=== PATIENT | male | born 1965 | race Caucasian/White ===

== ENCOUNTER 2022-12-22 17:14 | Observation (INO) | payer OTHER, SELFPAY ==
[~2022-12-22 17:14] MED LIST: Iopamidol 370 76% 100 ML VIAL ONE
[2022-12-22 18:24] LABS: #Basophils 0.1 10x3/uL (0.0-0.2); #Eosinphils 0.2 10x3/uL (0.0-0.5); #Monocytes 0.6 10x3/uL (0.0-1.1); #Neutrophils 3.9 10x3/uL (1.5-8.4); %Basophils 0.8 % (0.0-2.0); %Eosinophils 2.6 % (0.0-6.0); %Lymphocytes 23.3 % (18.0-47.0); %Monocytes 9.7 % (0.0-10.0); %Neutrophils 63.4 % (40.0-75.0); Hemoglobin 13.6 g/dL (13.5-17.5); Mean Corpuscular HGB CONC 34.6 g/dL (32.0-36.0); Mean Corpuscular Volume 106.8 fl (81.2-95.1); Mean Platelet Volume 10.3 fl (7.4-10.4); Platelet Count 128 10x3/uL (150-450); RBC Distribution Width 13.1 % (11.5-14.5); Red Blood Cell (RBC) Count 3.68 10x6/uL (4.32-5.72); White Blood Cell (WBC) Count 6.2 10x3/uL (3.5-10.5)
[2022-12-22 18:29] LABS: Albumin 3.7 g/dL (3.5-5.0); Anion Gap 14 mmol/L (10-20); BUN (Urea Nitrogen) 15 mg/dL (8.4-25.7); Bilirubin, Total 3.9 mg/dL (0.2-1.2); Calc. Creatinine Clearance 0 mL/min (70-130); Calcium 9.2 mg/dL (7.8-10.44); Carbon Dioxide 26 mmol/L (22-29); Chloride 104 mmol/L (98-107); Estimated GFR 102; Glucose 139 mg/dL (70-105); Potassium 3.6 mmol/L (3.5-5.1); Protein, Total 6.9 g/dL (6.0-8.3); Sodium 140 mmol/L (136-145)
[2022-12-22 18:30] LABS: ALT (SGPT) 46 U/L (8-55); AST (SGOT) 57 U/L (5-34); Alkaline Phosphatase 154 U/L (40-110); Globulin 3.2 g/dL (2.4-3.5); Lipase 70 U/L (8-78)
[2022-12-22 19:27] LABS: Macrocytosis SLIGHT = 6-15 cells (100X) (0-5/hpf)
[2022-12-22 19:29] LABS: Platelet Morphology Comment Appears Decreased
[2022-12-22] MEDS ORDERED: Morphine 4 MG/ML VIAL ONE ×2 (20:34→22:21)
[2022-12-22] MEDS ORDERED: Ondansetron PF 4 MG/2 ML Vial ONE ×2 (20:40→22:21)
[2022-12-23] MEDS ORDERED: Nitroglycerin 0.4 MG TAB (25 Tab Bottle) SL PRN (00:01)
[2022-12-23] MEDS ORDERED: metFORMIN 500 MG TAB PO SCH ×2 (00:15→21:00)
[2022-12-23] MEDS ORDERED: Atorvastatin Calcium 10 MG TAB PO SCH ×2 (00:15→21:00)
[2022-12-23] MEDS ORDERED: Morphine 4 MG/ML VIAL SLOW IVP PRN (00:16)
[2022-12-23] MEDS ORDERED: Morphine 2 MG/ML VIAL SLOW IVP PRN (00:16)
[2022-12-23] MEDS ORDERED: metFORMIN 500 MG TAB ONE (01:22)
[2022-12-23] MEDS ORDERED: Atorvastatin Calcium 10 MG TAB ONE (01:23)
[2022-12-23 01:41] VITALS: BMI 33.1
[2022-12-23] MEDS ORDERED: Morphine 4 MG/ML VIAL ONE (02:09)
[2022-12-23 02:14] LABS: SARS-CoV-2 NAA Rapid Test Not Detected (NotDetected)
[2022-12-23] MEDS ORDERED: Thiamine HCl 200 MG/2 ML VIAL SLOW IVP SCH (03:15)
[2022-12-23 03:55] LABS: #Eosinphils 0.1 10x3/uL (0.0-0.5); #Monocytes 0.8 10x3/uL (0.0-1.1); #Neutrophils 6.2 10x3/uL (1.5-8.4); %Basophils 0.4 % (0.0-2.0); %Eosinophils 1.2 % (0.0-6.0); %Lymphocytes 12.9 % (18.0-47.0); %Monocytes 9.9 % (0.0-10.0); %Neutrophils 75.5 % (40.0-75.0); Hemoglobin 12.7 g/dL (13.5-17.5); Mean Corpuscular HGB CONC 34.3 g/dL (32.0-36.0); Mean Corpuscular Hemoglobin 36.2 pg (27.0-33.0); Mean Corpuscular Volume 105.4 fl (81.2-95.1); Mean Platelet Volume 10.2 fl (7.4-10.4); Platelet Count 109 10x3/uL (150-450); RBC Distribution Width 13.1 % (11.5-14.5); Red Blood Cell (RBC) Count 3.51 10x6/uL (4.32-5.72); White Blood Cell (WBC) Count 8.2 10x3/uL (3.5-10.5)
[2022-12-23 04:00] LABS: Anion Gap 13 mmol/L (10-20); BUN (Urea Nitrogen) 14 mg/dL (8.4-25.7); Calc. Creatinine Clearance 175 mL/min (70-130); Calcium 8.6 mg/dL (7.8-10.44); Carbon Dioxide 26 mmol/L (22-29); Chloride 104 mmol/L (98-107); Cholesterol 81 mg/dl (< 200 Desired); Estimated GFR 108; Glucose 122 mg/dL (70-105); HDL Cholesterol 41 mg/dL (>60 Neg Risk); LDL Cholesterol, Calculated 20 mg/dL; Magnesium 1.4 mg/dL (1.6-2.6); Potassium 3.9 mmol/L (3.5-5.1); Sodium 139 mmol/L (136-145); Triglycerides 102 mg/dL (Less than 150)
[2022-12-23] MEDS ORDERED: Thiamine HCl 200 MG/2 ML VIAL ONE (05:09)
[2022-12-23 06:00] VITALS: TEMP 97.8
[2022-12-23] MEDS ORDERED: Electrolyte Replacement Protocol 1 EACH FS SCH (07:30)
[2022-12-23] MEDS ORDERED: Magnesium 2 GM/50 ML(in water) 2 GM in Premix Bag 1 BAG IVPB SCH (08:00)
[2022-12-23] MEDS ORDERED: Aspirin Chewable 81 MG TAB ONE ×2 (08:57→09:25)
[2022-12-23] MEDS ORDERED: Thiamine 100 MG TAB ONE (08:57)
[2022-12-23] MEDS ORDERED: Ondansetron PF 4 MG/2 ML Vial ONE (08:58)
[2022-12-23] MEDS ORDERED: Lisinopril 10 MG TAB ONE (08:58)
[2022-12-23] MEDS ORDERED: Multivitamin W/ Minerals 1 TAB ONE (08:58)
[2022-12-23] MEDS ORDERED: Folic Acid 1 MG TAB ONE (08:59)
[2022-12-23] MEDS ORDERED: Lisinopril 10 MG TAB PO SCH (09:00)
[2022-12-23] MEDS ORDERED: Allopurinol 300 MG TAB PO SCH (09:00)
[2022-12-23] MEDS ORDERED: Morphine 2 MG/ML VIAL ONE ×2 (09:00→19:06)
[2022-12-23] MEDS ORDERED: Folic Acid 1 MG TAB PO SCH (09:00)
[2022-12-23] MEDS ORDERED: Thiamine 100 MG TAB PO SCH (09:00)
[2022-12-23] MEDS ORDERED: Multivitamin W/ Minerals 1 TAB PO SCH (09:00)
[2022-12-23] MEDS ORDERED: Aspirin Chewable 81 MG TAB PO SCH (09:00)
[2022-12-23 09:23] VITALS: BP 149/82
[2022-12-23] MEDS ORDERED: Magnesium 2 GM/50 ML BAG (IN WATER) ONE (09:32)
[2022-12-23 14:34] LABS: Bilirubin Neg (Negative); Blood, Urine Negative (Negative); Clarity Clear (Clear); Glucose, Urine (Dipstick) Normal (Negative); Ketone, Urine Negative (Negative); Leukocyte Negative (Negative); Nitrite Negative (Negative); Protein, Urine (Dipstick) 15 mg/dl (Neg-Trace)
[2022-12-23 14:52] LABS: Bacteria/HPF Rare-Few HPF (None Seen); Oval Fat Bodies/HPF 1+ HPF (None Seen); RBC/HPF 0-3 HPF (0-3); Squamous Epithelial 0-3 HPF (0-3)
[2022-12-23 14:53] LABS: Mucous/LPF 2+ LPF (<2+)
[2022-12-23] MEDS ORDERED: Nitroglycerin 0.4 MG TAB 1 EACH ONE (15:54)
[2022-12-23] MEDS ORDERED: Acetaminophen 325 MG TAB PO PRN (17:51)
[2022-12-23] MEDS ORDERED: Acetaminophen 325 MG TAB ONE (19:06)
[2022-12-23] MEDS ORDERED: Atorvastatin Calcium 40 MG TAB PO SCH (21:00)
[2022-12-23] MEDS ORDERED: Gabapentin 300 MG CAP PO SCH (21:00)
[2022-12-24] MEDS ORDERED: Ezetimibe 10 MG TAB PO SCH (09:00)
[2022-12-24] MEDS ORDERED: Allopurinol 300 MG TAB PO SCH (09:00)
== END 2022-12-23 20:01 | disposition home or self-care (01) ==
LOC: CSHERS 17:14 → CSHERHOLD 21:23
PROVIDERS: ADMIT Emergency Medicine; ATTEND Nurse Practitioner Family
DX: R07.2 Precordial pain (principal); R10.13 Epigastric pain; I11.9 Hypertensive heart disease without heart failure; E78.5 Hyperlipidemia, unspecified; E11.9 Type 2 diabetes mellitus without complications; I25.10 Atherosclerotic heart disease of native coronary artery without angina pectoris; K21.9 Gastro-esophageal reflux disease without esophagitis; M10.9 Gout, unspecified; Z20.822 Contact with and (suspected) exposure to COVID-19; Z79.82 Long term (current) use of aspirin; Z79.84 Long term (current) use of oral hypoglycemic drugs; Z79.899 Other long term (current) drug therapy; Z88.8 Allergy status to other drugs, medicaments and biological substances; Z87.891 Personal history of nicotine dependence; Z98.890 Other specified postprocedural states
CPT/HCPCS: 36415; 36416; 71045; 71275; 76705; 80048; 80053; 80061; 81001; 82607; 83690; 83735; 83880; 84484; 85025; 85379; 93005; 93010; 96361; 96374; 96375; 96376; G0378; J1650; J2270; J2272; J2405; J3411; J3475; Q9967; U0002

== ENCOUNTER 2022-12-27 15:33 | Inpatient (IN) | payer OTHER, SELFPAY ==
[2022-12-27 16:32] LABS: #Neutrophils 5.5 10x3/uL (1.5-8.4); %Basophils 0.4 % (0.0-2.0); %Eosinophils 0.1 % (0.0-6.0); %Lymphocytes 11.9 % (18.0-47.0); %Monocytes 13.4 % (0.0-10.0); %Neutrophils 73.8 % (40.0-75.0); Hemoglobin 13.1 g/dL (13.5-17.5); Mean Corpuscular HGB CONC 35.1 g/dL (32.0-36.0); Mean Corpuscular Hemoglobin 36.3 pg (27.0-33.0); Mean Corpuscular Volume 103.3 fl (81.2-95.1); Platelet Count 134 10x3/uL (150-450); RBC Distribution Width 13.3 % (11.5-14.5); Red Blood Cell (RBC) Count 3.61 10x6/uL (4.32-5.72); White Blood Cell (WBC) Count 7.4 10x3/uL (3.5-10.5)
[2022-12-27 16:48] LABS: ALT (SGPT) 56 U/L (8-55); AST (SGOT) 95 U/L (5-34); Albumin 3.1 g/dL (3.5-5.0); Alkaline Phosphatase 115 U/L (40-110); Anion Gap 15 mmol/L (10-20); BUN (Urea Nitrogen) 34 mg/dL (8.4-25.7); Bilirubin, Total 3.7 mg/dL (0.2-1.2); Calc. Creatinine Clearance 0 mL/min (70-130); Calcium 8.8 mg/dL (7.8-10.44); Carbon Dioxide 25 mmol/L (22-29); Chloride 95 mmol/L (98-107); Estimated GFR 70; Globulin 3.5 g/dL (2.4-3.5); Glucose 121 mg/dL (70-105); Lipase 99 U/L (8-78); Potassium 3.7 mmol/L (3.5-5.1); Protein, Total 6.6 g/dL (6.0-8.3); Sodium 131 mmol/L (136-145)
[2022-12-27] MEDS ORDERED: Lidocaine 1% (PF) 30 ML VIAL ONE (17:10)
[2022-12-27 17:18] LABS: SARS-CoV-2 NAA Rapid Test Not Detected (NotDetected)
[2022-12-27] MEDS ORDERED: cefTRIAXone\\ROCEPHIN 2 GM VIAL ONE (17:51)
[2022-12-27 17:54] LABS: Bilirubin Neg (Negative); Blood, Urine Negative (Negative); Clarity Clear (Clear); Glucose, Urine (Dipstick) Normal (Negative); Ketone, Urine Negative (Negative); Leukocyte Negative (Negative); Nitrite Negative (Negative); Protein, Urine (Dipstick) 15 mg/dl (Neg-Trace)
[2022-12-27] MEDS ORDERED: VANCOMYCIN 2 GRAM/400 ML BAG 2 GM in Premix Bag 1 BAG IVPB SCH (18:00)
[2022-12-27 18:03] LABS: BF Color Yellow; Clarity Cloudy/Turbid (Clear)
[2022-12-27 18:32] LABS: BF Segmented Neutrophils 71 %; Cell Count Non Hematic 2 %; Lymphocytes 26 %
[2022-12-27 18:34] LABS: Body Fluid Source Ascites Body Fluid; Tube # EDTA
[2022-12-27] MEDS ORDERED: HumaLOG 300 UNITS/3 ML VIAL SC PRN (19:25)
[2022-12-27] MEDS ORDERED: Calcium Carbonate 500 MG ChewTAB PO PRN (19:25)
[2022-12-27] MEDS ORDERED: Ondansetron PF 4 MG/2 ML Vial IVP PRN (19:25)
[2022-12-27] MEDS ORDERED: Dextrose 5% in Water 1,000 ML IV PRN (19:25)
[2022-12-27] MEDS ORDERED: Guaifenesin DM 100-10/5 ML UDCUP PO PRN (19:25)
[2022-12-27] MEDS ORDERED: Senokot S 8.6-50 MG TAB PO PRN (19:25)
[2022-12-27] MEDS ORDERED: Acetaminophen 325 MG TAB PO PRN (19:25)
[2022-12-27] MEDS ORDERED: Dextrose 50% Abboject 50 ML SYRINGE SLOW IVP PRN (19:25)
[2022-12-27 19:32] LABS: Lactic Acid 1.8 mmol/L (0.5-2.2)
[2022-12-27] MEDS ORDERED: Acetaminophen 325 MG TAB ONE (19:46)
[2022-12-27] MEDS: Atorvastatin Calcium 40 MG TAB PO SCH (21:56)
[2022-12-27] MEDS: Famotidine 20 MG TAB PO SCH (21:57)
[2022-12-27] MEDS: Gabapentin 300 MG CAP PO SCH (21:57)
[2022-12-27] MEDS ORDERED: Sodium Chloride 0.9% 1,000 ML IV SCH (22:00)
[2022-12-27 22:58] VITALS: BMI 33.0
[2022-12-28] MEDS: Albumin 25% 25 GM/100 ML BOT IVPB SCH ×4 (01:00→17:19)
[2022-12-28] MEDS ORDERED: FLU VACC QS2022-23(6MOS UP)/PF 60 MCG/0.5 ML SYRINGE IM ONE (02:00)
[2022-12-28 05:16] LABS: #Eosinphils 0.1 10x3/uL (0.0-0.5); #Neutrophils 4.8 10x3/uL (1.5-8.4); %Basophils 0.4 % (0.0-2.0); %Eosinophils 0.7 % (0.0-6.0); %Lymphocytes 14.2 % (18.0-47.0); %Neutrophils 70.3 % (40.0-75.0); Hemoglobin 11.7 g/dL (13.5-17.5); INR-International Normal Ratio 1.3; Lactic Acid 1.5 mmol/L (0.5-2.2); Mean Corpuscular HGB CONC 35.3 g/dL (32.0-36.0); Mean Corpuscular Hemoglobin 36.6 pg (27.0-33.0); Mean Corpuscular Volume 103.4 fl (81.2-95.1); Mean Platelet Volume 9.6 fl (7.4-10.4); PTT 35.6 sec (22.0-33.0); Platelet Count 119 10x3/uL (150-450); Prothrombin Time 14.3 sec (9.5-12.1); RBC Distribution Width 13.3 % (11.5-14.5); White Blood Cell (WBC) Count 6.8 10x3/uL (3.5-10.5)
[2022-12-28 05:29] LABS: ALT (SGPT) 53 U/L (8-55); AST (SGOT) 90 U/L (5-34); Albumin 3.1 g/dL (3.5-5.0); Alkaline Phosphatase 98 U/L (40-110); Anion Gap 12 mmol/L (10-20); BUN (Urea Nitrogen) 25 mg/dL (8.4-25.7); Bilirubin, Total 3.4 mg/dL (0.2-1.2); Calc. Creatinine Clearance 150 mL/min (70-130); Calcium 8.6 mg/dL (7.8-10.44); Carbon Dioxide 27 mmol/L (22-29); Chloride 98 mmol/L (98-107); Estimated GFR 102; Globulin 2.9 g/dL (2.4-3.5); Glucose 121 mg/dL (70-105); Lipase 230 U/L (8-78); Potassium 3.4 mmol/L (3.5-5.1); Sodium 134 mmol/L (136-145)
[2022-12-28] MEDS ORDERED: Vancomycin HCl 1 GM in Sodium Chloride 0.9% 250 ML 250 ML IVPB SCH (08:00)
[2022-12-28] MEDS ORDERED: Lisinopril 10 MG TAB PO SCH (09:00)
[2022-12-28] MEDS: cefTRIAXone\\ROCEPHIN 2 GM in Sodium Chloride 0.9% 100 ML IVPB SCH (09:03)
[2022-12-28] MEDS: Gabapentin 300 MG CAP PO SCH ×3 (09:04→20:51)
[2022-12-28] MEDS: Multivitamin W/ Minerals 1 TAB PO SCH (09:04)
[2022-12-28] MEDS: Aspirin 81 mg Enteric Coated Tablet PO SCH (09:04)
[2022-12-28] MEDS: Thiamine 100 MG TAB PO SCH (09:04)
[2022-12-28] MEDS: Folic Acid 1 MG TAB PO SCH (09:04)
[2022-12-28] MEDS: Famotidine 20 MG TAB PO SCH ×2 (09:04→20:50)
[2022-12-28] MEDS: Allopurinol 300 MG TAB PO SCH (09:04)
[2022-12-28] MEDS: Potassium Chloride 20 MEQ TAB PO SCH ×2 (11:36→14:24)
[2022-12-28 12:16] LABS: HBCM Index 0.15 S/CO (0-0.79); HBSAg Index 0.24 S/CO (0-0.99); Hep A IgM AB Non-Reactive (NonReactive); Hep A IgM S/CO 0.17 S/CO (0-0.79); Hep B Surf Ag Non-Reactive S/CO (NonReactive); Hep C IgG Ab Non-Reactive (NonReactive); Hep C Index 0.38 S/CO (0-0.79); Hepatitis B Core IgM Abs Non-Reactive (NonReactive)
[2022-12-28] MEDS: HYDROcodone/Acetaminophen 5/325 mg Tablet PO PRN (16:36)
[2022-12-28] MEDS: VANCOMYCIN 1.25 GM/250 ML BAG 1.25 GM in Premix Bag 1 BAG IVPB SCH (20:42)
[2022-12-28] MEDS: Atorvastatin Calcium 40 MG TAB PO SCH (20:50)
[2022-12-29 08:13] LABS: Vancomycin, Trough 10.1 ug/mL
[2022-12-29 08:18] LABS: ALT (SGPT) 55 U/L (8-55); AST (SGOT) 92 U/L (5-34); Albumin 3.3 g/dL (3.5-5.0); Alkaline Phosphatase 92 U/L (40-110); Anion Gap 12 mmol/L (10-20); BUN (Urea Nitrogen) 18 mg/dL (8.4-25.7); Bilirubin, Total 3.2 mg/dL (0.2-1.2); Calc. Creatinine Clearance 161 mL/min (70-130); Calcium 8.6 mg/dL (7.8-10.44); Carbon Dioxide 27 mmol/L (22-29); Chloride 98 mmol/L (98-107); Estimated GFR 104; Globulin 2.6 g/dL (2.4-3.5); Glucose 118 mg/dL (70-105); Potassium 3.8 mmol/L (3.5-5.1); Protein, Total 5.9 g/dL (6.0-8.3); Sodium 133 mmol/L (136-145)
[2022-12-29] MEDS ORDERED: cefTRIAXone\\ROCEPHIN 2 GM VIAL ONE (08:33)
[2022-12-29] MEDS: VANCOMYCIN 1.25 GM/250 ML BAG 1.25 GM in Premix Bag 1 BAG IVPB SCH ×2 (08:35→22:30)
[2022-12-29] MEDS: Gabapentin 300 MG CAP PO SCH ×3 (08:35→22:58)
[2022-12-29] MEDS: Folic Acid 1 MG TAB PO SCH (08:35)
[2022-12-29] MEDS: Thiamine 100 MG TAB PO SCH (08:35)
[2022-12-29] MEDS: cefTRIAXone\\ROCEPHIN 2 GM in Sodium Chloride 0.9% 100 ML IVPB SCH (08:35)
[2022-12-29] MEDS: Famotidine 20 MG TAB PO SCH ×2 (08:36→22:58)
[2022-12-29] MEDS: Aspirin 81 mg Enteric Coated Tablet PO SCH (08:36)
[2022-12-29] MEDS: Multivitamin W/ Minerals 1 TAB PO SCH (08:36)
[2022-12-29] MEDS: Allopurinol 300 MG TAB PO SCH (08:36)
[2022-12-29] MEDS: HYDROcodone/Acetaminophen 5/325 mg Tablet PO PRN (11:57)
[2022-12-29] MEDS: Spironolactone 25 MG TAB PO SCH (15:44)
[2022-12-29] MEDS: metFORMIN 500 MG TAB PO SCH (15:45)
[2022-12-29] MEDS: Atorvastatin Calcium 40 MG TAB PO SCH (22:58)
[2022-12-30 05:47] LABS: Hemoglobin 11.9 g/dL (13.5-17.5); Mean Corpuscular HGB CONC 34.5 g/dL (32.0-36.0); Mean Corpuscular Hemoglobin 35.4 pg (27.0-33.0); Mean Corpuscular Volume 102.7 fl (81.2-95.1); Mean Platelet Volume 9.8 fl (7.4-10.4); Platelet Count 125 10x3/uL (150-450); RBC Distribution Width 13.3 % (11.5-14.5); Red Blood Cell (RBC) Count 3.36 10x6/uL (4.32-5.72); White Blood Cell (WBC) Count 6.8 10x3/uL (3.5-10.5)
[2022-12-30 05:59] LABS: INR-International Normal Ratio 1.3; Prothrombin Time 13.6 sec (9.5-12.1)
[2022-12-30 06:09] LABS: MDiff Complete? YES
[2022-12-30 06:12] LABS: Eosinophils 2 % (0-10); Lymphocytes 19 % (21-51); Monocytes 16 % (0-10); Neutrophil 58 % (42-75); Reactive Lymphocytes 5 % (0-10)
[2022-12-30 06:13] LABS: ALT (SGPT) 61 U/L (8-55); AST (SGOT) 95 U/L (5-34); Albumin 3.1 g/dL (3.5-5.0); Alkaline Phosphatase 100 U/L (40-110); Anion Gap 13 mmol/L (10-20); BUN (Urea Nitrogen) 17 mg/dL (8.4-25.7); Bilirubin, Total 2.8 mg/dL (0.2-1.2); Calc. Creatinine Clearance 166 mL/min (70-130); Calcium 8.7 mg/dL (7.8-10.44); Carbon Dioxide 27 mmol/L (22-29); Chloride 98 mmol/L (98-107); Estimated GFR 105; Globulin 2.8 g/dL (2.4-3.5); Glucose 104 mg/dL (70-105); Platelet Morphology Comment Appears Decreased; Potassium 3.9 mmol/L (3.5-5.1); Protein, Total 5.9 g/dL (6.0-8.3); Sodium 134 mmol/L (136-145)
[2022-12-30 06:15] LABS: RBC Morphology Normal
[2022-12-30] MEDS: HYDROcodone/Acetaminophen 5/325 mg Tablet PO PRN ×2 (07:30→21:23)
[2022-12-30] MEDS: Folic Acid 1 MG TAB PO SCH (09:08)
[2022-12-30] MEDS: metFORMIN 500 MG TAB PO SCH ×2 (09:08→17:18)
[2022-12-30] MEDS: Gabapentin 300 MG CAP PO SCH ×3 (09:09→21:23)
[2022-12-30] MEDS: Thiamine 100 MG TAB PO SCH (09:09)
[2022-12-30] MEDS: Multivitamin W/ Minerals 1 TAB PO SCH (09:09)
[2022-12-30] MEDS: Famotidine 20 MG TAB PO SCH ×2 (09:09→21:24)
[2022-12-30] MEDS: Aspirin 81 mg Enteric Coated Tablet PO SCH (09:09)
[2022-12-30] MEDS: VANCOMYCIN 1.25 GM/250 ML BAG 1.25 GM in Premix Bag 1 BAG IVPB SCH ×2 (09:09→21:23)
[2022-12-30] MEDS: Furosemide 40 MG TAB PO SCH (09:09)
[2022-12-30] MEDS: Spironolactone 25 MG TAB PO SCH ×2 (09:09→17:18)
[2022-12-30] MEDS: Allopurinol 300 MG TAB PO SCH (09:10)
[2022-12-30] MEDS: cefTRIAXone\\ROCEPHIN 2 GM in Sodium Chloride 0.9% 100 ML IVPB SCH (11:12)
[2022-12-30] MEDS: Atorvastatin Calcium 40 MG TAB PO SCH (21:24)
[2022-12-31] MEDS: HYDROcodone/Acetaminophen 5/325 mg Tablet PO PRN ×2 (01:44→12:45)
[2022-12-31 05:14] LABS: INR-International Normal Ratio 1.4; Prothrombin Time 14.6 sec (9.5-12.1)
[2022-12-31 05:33] LABS: ALT (SGPT) 61 U/L (8-55); AST (SGOT) 89 U/L (5-34); Albumin 3.2 g/dL (3.5-5.0); Alkaline Phosphatase 127 U/L (40-110); Anion Gap 13 mmol/L (10-20); BUN (Urea Nitrogen) 17 mg/dL (8.4-25.7); Bilirubin, Total 2.5 mg/dL (0.2-1.2); Calc. Creatinine Clearance 150 mL/min (70-130); Calcium 8.8 mg/dL (7.8-10.44); Carbon Dioxide 27 mmol/L (22-29); Chloride 97 mmol/L (98-107); Estimated GFR 102; Glucose 103 mg/dL (70-105); Potassium 3.8 mmol/L (3.5-5.1); Protein, Total 6.2 g/dL (6.0-8.3); Sodium 133 mmol/L (136-145)
[2022-12-31] MEDS: Thiamine 100 MG TAB PO SCH (08:10)
[2022-12-31] MEDS: Multivitamin W/ Minerals 1 TAB PO SCH (08:10)
[2022-12-31] MEDS: Allopurinol 300 MG TAB PO SCH (08:10)
[2022-12-31] MEDS: Gabapentin 300 MG CAP PO SCH (08:10)
[2022-12-31] MEDS: Spironolactone 25 MG TAB PO SCH (08:10)
[2022-12-31] MEDS: Aspirin 81 mg Enteric Coated Tablet PO SCH (08:10)
[2022-12-31] MEDS: Furosemide 40 MG TAB PO SCH (08:10)
[2022-12-31] MEDS: metFORMIN 500 MG TAB PO SCH (08:10)
[2022-12-31] MEDS: Folic Acid 1 MG TAB PO SCH (08:11)
[2022-12-31] MEDS: Famotidine 20 MG TAB PO SCH (08:11)
[2022-12-31] MEDS: VANCOMYCIN 1.25 GM/250 ML BAG 1.25 GM in Premix Bag 1 BAG IVPB SCH (08:11)
[2022-12-31] MEDS: cefTRIAXone\\ROCEPHIN 2 GM in Sodium Chloride 0.9% 100 ML IVPB SCH (09:55)
[2022-12-31] MEDS ORDERED: Albumin 25% 25 GM/100 ML BOT IVPB SCH (10:00)
[2022-12-31] MEDS ORDERED: Lidocaine 1% PF 5 ML VIAL ONE (10:12)
[2022-12-31] MEDS ORDERED: Sodium Bicarbonate 2.5 MEQ/5 ML VIAL ONE (10:12)
[2022-12-31 11:44] VITALS: BP 125/63; TEMP 98.4
== END 2022-12-31 15:23 | disposition home or self-care (01) | DRG 871 ==
LOC: CSHERS 15:33 → CSHTELE 20:56
PROVIDERS: ADMIT Student in an Organized Health Care Education/Training Program; ATTEND Internal Medicine
PROC: 3E03329 Introduction of Other Anti-infective into Peripheral Vein, Percutaneous Approach (ICD-10-PCS; 2022-12-27)
PROC: 30233J1 Transfusion of Nonautologous Serum Albumin into Peripheral Vein, Percutaneous Approach (ICD-10-PCS; 2022-12-27)
PROC: 0W9G3ZZ Drainage of Peritoneal Cavity, Percutaneous Approach (ICD-10-PCS; principal; 2022-12-31)
DX: A41.50 Gram-negative sepsis, unspecified (principal); K65.2 Spontaneous bacterial peritonitis; E87.20 Acidosis, unspecified; N17.9 Acute kidney failure, unspecified; E87.1 Hypo-osmolality and hyponatremia; I25.10 Atherosclerotic heart disease of native coronary artery without angina pectoris; Z20.822 Contact with and (suspected) exposure to COVID-19; I10 Essential (primary) hypertension; E78.5 Hyperlipidemia, unspecified; E11.9 Type 2 diabetes mellitus without complications; M10.9 Gout, unspecified; K21.9 Gastro-esophageal reflux disease without esophagitis; K70.11 Alcoholic hepatitis with ascites; D64.9 Anemia, unspecified; K70.31 Alcoholic cirrhosis of liver with ascites; Z83.3 Family history of diabetes mellitus; Z88.1 Allergy status to other antibiotic agents; Z79.899 Other long term (current) drug therapy; Z95.5 Presence of coronary angioplasty implant and graft; Z98.890 Other specified postprocedural states; Z79.82 Long term (current) use of aspirin; Z79.84 Long term (current) use of oral hypoglycemic drugs; Z82.49 Family history of ischemic heart disease and other diseases of the circulatory system; Z87.891 Personal history of nicotine dependence
CPT/HCPCS: 36415; 36416; 49083; 71045; 80053; 80074; 80202; 81003; 82042; 82140; 82150; 82247; 82945; 83605; 83615; 83690; 83735; 83880; 84157; 84443; 84484; 85025; 85610; 85730; 86140; 87040; 87070; 87077; 87149; 87186; 87205; 88112; 88305; 89051; 93005; 94760; J0696; J1650; J2001; J3370; J3490; J7050; P9047

== ENCOUNTER 2023-01-28 21:20 | Inpatient (IN) | payer OTHER ==
[~2023-01-28 21:20] MED LIST changes: +Iopamidol 300 61% 100 ML VIAL FS ONE; -Iopamidol 370 76% 100 ML VIAL ONE
[2023-01-28] MEDS ORDERED: Acetaminophen 500 MG TAB ONE (21:51)
[2023-01-28] MEDS ORDERED: Piperacillin/Tazobactam 3.375 GM VIAL ONE (21:51)
[2023-01-28] MEDS ORDERED: Vancomycin 1 GM VIAL ONE (21:51)
[2023-01-28] MEDS ORDERED: Ondansetron PF 4 MG/2 ML Vial ONE (21:51)
[2023-01-28 22:30] LABS: #Basophils 0.1 10x3/uL (0.0-0.2); #Monocytes 0.5 10x3/uL (0.0-1.1); #Neutrophils 17.8 10x3/uL (1.5-8.4); %Basophils 0.4 % (0.0-2.0); %Eosinophils 0.1 % (0.0-6.0); %Monocytes 2.7 % (0.0-10.0); %Neutrophils 93.5 % (40.0-75.0); Hemoglobin 13.6 g/dL (13.5-17.5); Mean Corpuscular HGB CONC 34.5 g/dL (32.0-36.0); Mean Corpuscular Hemoglobin 33.3 pg (27.0-33.0); Mean Corpuscular Volume 96.6 fl (81.2-95.1); Mean Platelet Volume 9.1 fl (7.4-10.4); Platelet Count 246 10x3/uL (150-450); RBC Distribution Width 13.4 % (11.5-14.5); Red Blood Cell (RBC) Count 4.08 10x6/uL (4.32-5.72)
[2023-01-28 22:43] LABS: ALT (SGPT) 54 U/L (8-55); AST (SGOT) 52 U/L (5-34); Albumin 2.6 g/dL (3.5-5.0); Alkaline Phosphatase 166 U/L (40-110); Anion Gap 19 mmol/L (10-20); BUN (Urea Nitrogen) 32 mg/dL (8.4-25.7); Bilirubin, Total 2.6 mg/dL (0.2-1.2); Calc. Creatinine Clearance 0 mL/min (70-130); Calcium 8.1 mg/dL (7.8-10.44); Carbon Dioxide 18 mmol/L (22-29); Chloride 91 mmol/L (98-107); Estimated GFR 30; Globulin 2.8 g/dL (2.4-3.5); Glucose 121 mg/dL (70-105); Lipase 187 U/L (8-78); Potassium 4.2 mmol/L (3.5-5.1); Protein, Total 5.4 g/dL (6.0-8.3); Sodium 124 mmol/L (136-145)
[2023-01-29 00:29] LABS: SARS-CoV-2 NAA Rapid Test Not Detected (NotDetected)
[2023-01-29] MEDS ORDERED: Azithromycin 500 MG VIAL ONE (00:53)
[2023-01-29] MEDS ORDERED: Lactated Ringer's 1,000 ML IV SCH (01:15)
[2023-01-29] MEDS ORDERED: Piperacillin/Tazobactam 3.375 GM in Sodium Chloride 0.9% 100 ML IVPB SCH (01:15)
[2023-01-29] MEDS ORDERED: NOREPINEPHRINE 8 MG/250 ML-D5W 250 ML IVPB SCH (01:15)
[2023-01-29 01:39] LABS: Magnesium 1.6 mg/dL (1.6-2.6)
[2023-01-29 01:52] LABS: Lactic Acid 4.5 mmol/L (0.5-2.2)
[2023-01-29 01:59] LABS: Bilirubin Neg (Negative); Blood, Urine Negative (Negative); Clarity Slightly Cloudy (Clear); Glucose, Urine (Dipstick) Normal (Negative); Ketone, Urine Negative (Negative); Leukocyte Negative (Negative); Nitrite Negative (Negative); Protein, Urine (Dipstick) 30 mg/dl (Neg-Trace); Specific Gravity, Urine 1.015 (1.005-1.030)
[2023-01-29 02:06] LABS: Bacteria/HPF None Seen HPF (None Seen); Mucous/LPF 1+ LPF (<2+); RBC/HPF 0-3 HPF (0-3); Squamous Epithelial 0-3 HPF (0-3); Transitional Epithelial 0-3 HPF (None Seen)
[2023-01-29] MEDS ORDERED: Vancomycin HCl 500 MG in Sodium Chloride 0.9% 100 ML IVPB SCH (02:15)
[2023-01-29 02:40] VITALS: BMI 29.7
[2023-01-29 02:45] LABS: Hemoglobin 11.9 g/dL (13.5-17.5); Mean Corpuscular HGB CONC 33.8 g/dL (32.0-36.0); Mean Corpuscular Hemoglobin 33.6 pg (27.0-33.0); Mean Corpuscular Volume 99.4 fl (81.2-95.1); Platelet Count 156 10x3/uL (150-450); RBC Distribution Width 13.5 % (11.5-14.5); Red Blood Cell (RBC) Count 3.54 10x6/uL (4.32-5.72); White Blood Cell (WBC) Count 21.6 10x3/uL (3.5-10.5)
[2023-01-29 02:52] LABS: INR-International Normal Ratio 1.4; PTT 32.3 sec (22.0-33.0); Prothrombin Time 14.6 sec (9.5-12.1)
[2023-01-29 02:53] LABS: MDiff Complete? YES
[2023-01-29 02:59] LABS: Anion Gap 17 mmol/L (10-20); BUN (Urea Nitrogen) 31 mg/dL (8.4-25.7); Band 11 % (5-11); Calc. Creatinine Clearance 53 mL/min (70-130); Calcium 7.3 mg/dL (7.8-10.44); Carbon Dioxide 14 mmol/L (22-29); Chloride 96 mmol/L (98-107); Estimated GFR 33; Glucose 129 mg/dL (70-105); Monocytes 3 % (0-10); Neutrophil 86 % (42-75); Potassium 4.6 mmol/L (3.5-5.1); Sodium 122 mmol/L (136-145)
[2023-01-29 03:00] LABS: Platelet Morphology Comment Appears Adequate; RBC Morphology Normal
[2023-01-29] MEDS: Piperacillin/Tazobactam 3.375 GM in Sodium Chloride 0.9% 100 ML IVPB SCH ×3 (03:04→17:44)
[2023-01-29 03:19] LABS: Legionella Urinary Ag Negative (Negative); Strep pneumo Urine Ag NEGATIVE (NEGATIVE)
[2023-01-29] MEDS ORDERED: Lidocaine 1% (PF) 30 ML VIAL ONE (03:21)
[2023-01-29] MEDS: Thiamine HCl 200 MG/2 ML VIAL SLOW IVP SCH (04:35)
[2023-01-29] MEDS: Albumin 25% 25 GM/100 ML BOT IVPB SCH ×3 (04:36→20:17)
[2023-01-29 05:00] LABS: Body Fluid Source Thoracentesis Fluid; Tube # EDTA
[2023-01-29 05:01] LABS: BF Color Yellow; Clarity Cloudy/Turbid (Clear)
[2023-01-29 05:52] LABS: BF Segmented Neutrophils 92 %; Eosinophils 1 %; Lymphocytes 7 %
[2023-01-29] MEDS ORDERED: Morphine 2 MG/ML VIAL SLOW IVP SCH (06:00)
[2023-01-29 06:07] LABS: Lactic Acid 4.1 mmol/L (0.5-2.2)
[2023-01-29] MEDS: Aspirin 81 mg Enteric Coated Tablet PO SCH (08:01)
[2023-01-29] MEDS: Pantoprazole 40 MG VIAL IVP SCH (08:01)
[2023-01-29] MEDS: Allopurinol 300 MG TAB PO SCH (08:19)
[2023-01-29] MEDS: Morphine 4 MG/ML VIAL SLOW IVP PRN ×2 (13:08→21:26)
[2023-01-29] MEDS: Benzonatate 100 MG CAP PO PRN ×2 (13:09→21:26)
[2023-01-29] MEDS: Sodium Chloride 0.9% 1,000 ML IV SCH (16:31)
[2023-01-29] MEDS ORDERED: Electrolyte Replacement Protocol 1 EACH FS SCH (18:00)
[2023-01-29] MEDS ORDERED: Atorvastatin Calcium 40 MG TAB PO SCH (21:00)
[2023-01-29] MEDS ORDERED: Vancomycin HCl 1 GM in Sodium Chloride 0.9% 250 ML 300 ML IVPB SCH (23:00)
[2023-01-29 23:26] LABS: Vancomycin, Random 8.8 ug/mL (See Comment)
[2023-01-30] MEDS ORDERED: Azithromycin 500 MG in Sodium Chloride 0.9% 250 ML 250 ML IVPB SCH
[2023-01-30] MEDS: Thiamine HCl 200 MG/2 ML VIAL SLOW IVP SCH (02:36)
[2023-01-30] MEDS: Piperacillin/Tazobactam 3.375 GM in Sodium Chloride 0.9% 100 ML IVPB SCH ×2 (02:36→09:35)
[2023-01-30 04:43] LABS: #Eosinphils 0.1 10x3/uL (0.0-0.5); #Monocytes 1.1 10x3/uL (0.0-1.1); %Basophils 0.1 % (0.0-2.0); %Eosinophils 0.3 % (0.0-6.0); %Lymphocytes 4.3 % (18.0-47.0); %Monocytes 6.5 % (0.0-10.0); Hemoglobin 10.7 g/dL (13.5-17.5); Mean Corpuscular HGB CONC 34.7 g/dL (32.0-36.0); Mean Corpuscular Hemoglobin 34.1 pg (27.0-33.0); Mean Corpuscular Volume 98.1 fl (81.2-95.1); Mean Platelet Volume 9.1 fl (7.4-10.4); Platelet Count 138 10x3/uL (150-450); RBC Distribution Width 13.7 % (11.5-14.5); Red Blood Cell (RBC) Count 3.14 10x6/uL (4.32-5.72); White Blood Cell (WBC) Count 17.1 10x3/uL (3.5-10.5)
[2023-01-30 04:54] LABS: INR-International Normal Ratio 1.5; PTT 42.3 sec (22.0-33.0); Prothrombin Time 15.7 sec (9.5-12.1)
[2023-01-30 05:01] LABS: ALT (SGPT) 29 U/L (8-55); AST (SGOT) 26 U/L (5-34); Albumin 2.7 g/dL (3.5-5.0); Alkaline Phosphatase 102 U/L (40-110); Anion Gap 17 mmol/L (10-20); BUN (Urea Nitrogen) 36 mg/dL (8.4-25.7); Bilirubin, Total 2.3 mg/dL (0.2-1.2); Calc. Creatinine Clearance 59 mL/min (70-130); Calcium 8.1 mg/dL (7.8-10.44); Carbon Dioxide 16 mmol/L (22-29); Chloride 95 mmol/L (98-107); Estimated GFR 38; Globulin 2.1 g/dL (2.4-3.5); Glucose 114 mg/dL (70-105); Phosphorus 5.5 mg/dL (2.3-4.7); Potassium 4.5 mmol/L (3.5-5.1); Protein, Total 4.8 g/dL (6.0-8.3); Sodium 123 mmol/L (136-145)
[2023-01-30] MEDS: Sodium Chloride 0.9% 1,000 ML IV SCH ×2 (05:45→21:16)
[2023-01-30] MEDS ORDERED: Magnesium 2 GM/50 ML(in water) 2 GM in Premix Bag 1 BAG IVPB SCH (06:00)
[2023-01-30] MEDS ORDERED: Albumin 25% 100 ML ONE (07:57)
[2023-01-30] MEDS: Aspirin 81 mg Enteric Coated Tablet PO SCH (07:59)
[2023-01-30] MEDS: Albumin 25% 25 GM/100 ML BOT IVPB SCH ×3 (07:59→21:09)
[2023-01-30] MEDS: Pantoprazole 40 MG VIAL IVP SCH (07:59)
[2023-01-30] MEDS: Allopurinol 300 MG TAB PO SCH (08:00)
[2023-01-30] MEDS: Morphine 4 MG/ML VIAL SLOW IVP PRN ×2 (09:00→15:28)
[2023-01-30] MEDS ORDERED: Cefepime 1 GM in Sodium Chloride 0.9% 100 ML IVPB SCH (17:30)
[2023-01-30] MEDS: Cefepime 1 GM in Sodium Chloride 0.9% 100 ML IVPB SCH (17:57)
[2023-01-30] MEDS ORDERED: VANCOMYCIN 1.25 GM/250 ML BAG 1.25 GM in Premix Bag 1 BAG IVPB SCH (23:59)
[2023-01-31] MEDS: Thiamine HCl 200 MG/2 ML VIAL SLOW IVP SCH (03:06)
[2023-01-31 05:03] LABS: Mean Corpuscular Hemoglobin 33.7 pg (27.0-33.0); Mean Corpuscular Volume 99.4 fl (81.2-95.1); Mean Platelet Volume 9.4 fl (7.4-10.4); Platelet Count 151 10x3/uL (150-450); RBC Distribution Width 13.6 % (11.5-14.5); Red Blood Cell (RBC) Count 3.26 10x6/uL (4.32-5.72); White Blood Cell (WBC) Count 21.7 10x3/uL (3.5-10.5)
[2023-01-31 05:09] LABS: ALT (SGPT) 26 U/L (8-55); AST (SGOT) 23 U/L (5-34); Albumin 3.1 g/dL (3.5-5.0); Alkaline Phosphatase 91 U/L (40-110); Anion Gap 14 mmol/L (10-20); BUN (Urea Nitrogen) 45 mg/dL (8.4-25.7); Bilirubin, Total 2.5 mg/dL (0.2-1.2); Calc. Creatinine Clearance 42 mL/min (70-130); Calcium 8.1 mg/dL (7.8-10.44); Carbon Dioxide 16 mmol/L (22-29); Chloride 92 mmol/L (98-107); Estimated GFR 25; Glucose 146 mg/dL (70-105); Potassium 4.8 mmol/L (3.5-5.1); Protein, Total 5.1 g/dL (6.0-8.3)
[2023-01-31 05:11] LABS: MDiff Complete? YES
[2023-01-31] MEDS: Cefepime 1 GM in Sodium Chloride 0.9% 100 ML IVPB SCH ×2 (05:22→18:12)
[2023-01-31 05:34] LABS: Sodium 117 mmol/L (136-145)
[2023-01-31 06:00] LABS: Band 2 % (5-11); Lymphocytes 3 % (21-51); Monocytes 6 % (0-10); Neutrophil 89 % (42-75)
[2023-01-31 06:02] LABS: Anisocytosis MODERATE=16-30 cells (100X) (0-5/hpf); Ovalocytes SLIGHT = 2-5 cells (100X) (0-1/hpf)
[2023-01-31 06:03] LABS: Platelet Morphology Comment Appears Adequate
[2023-01-31] MEDS ORDERED: Octreotide Acetate 500 MCG/ML VIAL SC SCH (09:00)
[2023-01-31] MEDS ORDERED: Albumin 25% 25 GM/100 ML BOT IVPB SCH (09:00)
[2023-01-31 09:19] LABS: Vancomycin, Random 21.6 ug/mL (See Comment)
[2023-01-31 09:23] LABS: Anion Gap 14 mmol/L (10-20); BUN (Urea Nitrogen) 49 mg/dL (8.4-25.7); CK (CPK) 16 U/L (30-200); Calc. Creatinine Clearance 42 mL/min (70-130); Calcium 8.2 mg/dL (7.8-10.44); Carbon Dioxide 16 mmol/L (22-29); Chloride 92 mmol/L (98-107); Estimated GFR 25; Glucose 138 mg/dL (70-105); Potassium 4.7 mmol/L (3.5-5.1)
[2023-01-31 09:33] LABS: Sodium 117 mmol/L (136-145)
[2023-01-31] MEDS: Allopurinol 300 MG TAB PO SCH (11:01)
[2023-01-31] MEDS: Aspirin 81 mg Enteric Coated Tablet PO SCH (11:01)
[2023-01-31] MEDS: Pantoprazole 40 MG VIAL IVP SCH (11:02)
[2023-01-31] MEDS: Sodium Chloride 0.9% 1,000 ML IV SCH (11:53)
[2023-01-31 14:21] LABS: Creatinine, Urine 233.45 mg/dL (63-166); Protein, Urine Random Quant 57 mg/dL (1-14)
[2023-01-31] MEDS ORDERED: Ondansetron PF 4 MG/2 ML Vial IVP PRN (16:28)
[2023-01-31] MEDS: Sodium Bicarbonate Tab 325 MG TAB PO SCH ×3 (16:30→21:42)
[2023-01-31] MEDS ORDERED: Non-Formulary Medication 1 EACH (Evolocumab [Repatha Sureclick] 140 MG/ML Pen.Injctr) SQ SCH (16:30)
[2023-01-31] MEDS: Octreotide Acetate 100 MCG/ML VIAL SC SCH ×3 (16:30→21:42)
[2023-01-31] MEDS: Albumin 25% 25 GM/100 ML BOT IVPB SCH ×2 (16:54→21:42)
[2023-01-31] MEDS ORDERED: Spironolactone 25 MG TAB PO SCH (17:00)
[2023-01-31] MEDS: Morphine 4 MG/ML VIAL SLOW IVP PRN ×2 (17:38→21:57)
[2023-01-31 20:21] LABS: Anion Gap 16 mmol/L (10-20); BUN (Urea Nitrogen) 52 mg/dL (8.4-25.7); Calc. Creatinine Clearance 43 mL/min (70-130); Calcium 8.5 mg/dL (7.8-10.44); Carbon Dioxide 16 mmol/L (22-29); Chloride 92 mmol/L (98-107); Estimated GFR 26; Glucose 119 mg/dL (70-105); Potassium 5.4 mmol/L (3.5-5.1)
[2023-01-31 20:33] LABS: Sodium, Urine Less than 20 mmol/L (Not Available); Urea Nitrogen, Random Urine 364 mg/dl
[2023-01-31 20:36] LABS: Sodium 119 mmol/L (136-145)
[2023-01-31] MEDS: Sodium Chloride 1 GM TAB PO SCH (21:41)
[2023-02-01] MEDS: Thiamine HCl 200 MG/2 ML VIAL SLOW IVP SCH (03:13)
[2023-02-01] MEDS: Albumin 25% 25 GM/100 ML BOT IVPB SCH ×3 (03:18→18:11)
[2023-02-01 05:10] LABS: Hemoglobin 10.7 g/dL (13.5-17.5); Mean Corpuscular Hemoglobin 33.5 pg (27.0-33.0); Mean Corpuscular Volume 98.7 fl (81.2-95.1); Mean Platelet Volume 8.8 fl (7.4-10.4); Platelet Count 168 10x3/uL (150-450); RBC Distribution Width 13.7 % (11.5-14.5); Red Blood Cell (RBC) Count 3.19 10x6/uL (4.32-5.72); White Blood Cell (WBC) Count 24.7 10x3/uL (3.5-10.5)
[2023-02-01 05:20] LABS: ALT (SGPT) 21 U/L (8-55); AST (SGOT) 22 U/L (5-34); Albumin 3.8 g/dL (3.5-5.0); Alkaline Phosphatase 72 U/L (40-110); Anion Gap 15 mmol/L (10-20); BUN (Urea Nitrogen) 59 mg/dL (8.4-25.7); Calc. Creatinine Clearance 34 mL/min (70-130); Calcium 8.5 mg/dL (7.8-10.44); Carbon Dioxide 15 mmol/L (22-29); Chloride 92 mmol/L (98-107); Estimated GFR 19; Globulin 1.8 g/dL (2.4-3.5); Glucose 119 mg/dL (70-105); Potassium 5.3 mmol/L (3.5-5.1); Protein, Total 5.6 g/dL (6.0-8.3)
[2023-02-01 05:24] LABS: Sodium 117 mmol/L (136-145)
[2023-02-01 05:25] LABS: MDiff Complete? YES
[2023-02-01] MEDS: Cefepime 1 GM in Sodium Chloride 0.9% 100 ML IVPB SCH (05:36)
[2023-02-01] MEDS: Morphine 4 MG/ML VIAL SLOW IVP PRN ×3 (05:37→15:08)
[2023-02-01] MEDS: Octreotide Acetate 100 MCG/ML VIAL SC SCH ×3 (05:56→22:08)
[2023-02-01 06:16] LABS: Lymphocytes 2 % (21-51); Monocytes 5 % (0-10); Neutrophil 93 % (42-75)
[2023-02-01 06:23] LABS: Crenated RBC SLIGHT = 1-5 cells (100X) (None Seen); Ovalocytes SLIGHT = 2-5 cells (100X) (0-1/hpf)
[2023-02-01 06:24] LABS: Platelet Clumps SLIGHT; Platelet Morphology Comment Appears Adequate
[2023-02-01] MEDS ORDERED: Allopurinol 300 MG TAB PO SCH (09:00)
[2023-02-01] MEDS: Pantoprazole 40 MG VIAL IVP SCH (09:41)
[2023-02-01] MEDS: Sodium Chloride 1 GM TAB PO SCH ×3 (09:41→20:40)
[2023-02-01] MEDS: Sodium Bicarbonate Tab 325 MG TAB PO SCH ×3 (09:41→20:40)
[2023-02-01] MEDS: Aspirin 81 mg Enteric Coated Tablet PO SCH (09:41)
[2023-02-01] MEDS ORDERED: cefTRIAXone\\ROCEPHIN 1 GM in Sodium Chloride 0.9% 100 ML IVPB SCH (10:00)
[2023-02-01] MEDS: Sodium Chloride 256 MEQ in Sterile Water Injection 936 ML IV SCH (10:40)
[2023-02-01] MEDS ORDERED: Sodium Bicarbonate 2.5 MEQ/5 ML VIAL ONE (15:58)
[2023-02-01] MEDS ORDERED: Lidocaine 1% PF 5 ML VIAL ONE (15:58)
[2023-02-01 16:17] LABS: Anion Gap 20 mmol/L (10-20); BUN (Urea Nitrogen) 64 mg/dL (8.4-25.7); Calc. Creatinine Clearance 29 mL/min (70-130); Calcium 8.4 mg/dL (7.8-10.44); Chloride 94 mmol/L (98-107); Estimated GFR 16; Glucose 108 mg/dL (70-105); Potassium 5.8 mmol/L (3.5-5.1)
[2023-02-01 16:33] LABS: Carbon Dioxide 9 mmol/L (22-29); Sodium 117 mmol/L (136-145)
[2023-02-01 18:25] LABS: Body Fluid Source Ascites Body Fluid; Clarity Cloudy/Turbid (Clear); Tube # EDTA
[2023-02-01 18:26] LABS: BF Color Pink
[2023-02-01 18:31] LABS: BF Segmented Neutrophils 85 %; Cell Count Non Hematic 4 %; Lymphocytes 11 %
[2023-02-01 22:28] LABS: Fluid, Protein 2.2 g/dL (Not Available)
[2023-02-01 22:44] LABS: Anion Gap 17 mmol/L (10-20); BUN (Urea Nitrogen) 69 mg/dL (8.4-25.7); Calc. Creatinine Clearance 26 mL/min (70-130); Calcium 8.2 mg/dL (7.8-10.44); Carbon Dioxide 14 mmol/L (22-29); Chloride 95 mmol/L (98-107); Estimated GFR 14; Glucose 140 mg/dL (70-105); Potassium 5.2 mmol/L (3.5-5.1); Sodium 121 mmol/L (136-145)
[2023-02-02] MEDS: Albumin 25% 25 GM/100 ML BOT IVPB SCH ×4 (00:45→19:27)
[2023-02-02] MEDS: Thiamine HCl 200 MG/2 ML VIAL SLOW IVP SCH (03:31)
[2023-02-02 04:34] LABS: Hemoglobin 10.5 g/dL (13.5-17.5); MDiff Complete? YES; Mean Corpuscular HGB CONC 33.3 g/dL (32.0-36.0); Mean Corpuscular Hemoglobin 33.5 pg (27.0-33.0); Mean Corpuscular Volume 100.6 fl (81.2-95.1); Platelet Count 191 10x3/uL (150-450); RBC Distribution Width 14.2 % (11.5-14.5); Red Blood Cell (RBC) Count 3.13 10x6/uL (4.32-5.72); White Blood Cell (WBC) Count 24.2 10x3/uL (3.5-10.5)
[2023-02-02 04:44] LABS: INR-International Normal Ratio 1.4; Prothrombin Time 14.8 sec (9.5-12.1)
[2023-02-02 04:54] LABS: ALT (SGPT) 17 U/L (8-55); AST (SGOT) 20 U/L (5-34); Albumin 3.8 g/dL (3.5-5.0); Alkaline Phosphatase 69 U/L (40-110); Anion Gap 19 mmol/L (10-20); BUN (Urea Nitrogen) 73 mg/dL (8.4-25.7); Bilirubin, Total 2.4 mg/dL (0.2-1.2); Calc. Creatinine Clearance 23 mL/min (70-130); Calcium 8.4 mg/dL (7.8-10.44); Carbon Dioxide 13 mmol/L (22-29); Chloride 96 mmol/L (98-107); Estimated GFR 12; Globulin 1.6 g/dL (2.4-3.5); Glucose 123 mg/dL (70-105); Potassium 5.2 mmol/L (3.5-5.1); Protein, Total 5.4 g/dL (6.0-8.3); Sodium 123 mmol/L (136-145)
[2023-02-02] MEDS ORDERED: Cefepime 1 GM in Sodium Chloride 0.9% 100 ML IVPB SCH (05:30)
[2023-02-02 05:32] LABS: Eosinophils 1 % (0-10); Lymphocytes 7 % (21-51); Monocytes 8 % (0-10); Neutrophil 84 % (42-75)
[2023-02-02] MEDS: cefTRIAXone\\ROCEPHIN 2 GM in Sodium Chloride 0.9% 100 ML IVPB SCH (05:33)
[2023-02-02] MEDS: Octreotide Acetate 100 MCG/ML VIAL SC SCH ×3 (05:33→21:02)
[2023-02-02 05:35] LABS: Anisocytosis SLIGHT = 6-15 cells (100X) (0-5/hpf); Microcytosis SLIGHT = 6-15 cells (100X) (0-5/hpf); Ovalocytes SLIGHT = 2-5 cells (100X) (0-1/hpf); Schistocytes SLIGHT = 2-5 cells (100X) (0-1/hpf)
[2023-02-02 05:36] LABS: Platelet Morphology Comment Appears Adequate
[2023-02-02] MEDS: Sodium Chloride 256 MEQ in Sterile Water Injection 936 ML IV SCH (06:30)
[2023-02-02] MEDS ORDERED: cefTRIAXone\\ROCEPHIN 2 GM in Sodium Chloride 0.9% 100 ML IVPB SCH (09:00)
[2023-02-02] MEDS: Sodium Bicarbonate Tab 325 MG TAB PO SCH ×3 (09:31→20:37)
[2023-02-02] MEDS: Sodium Chloride 1 GM TAB PO SCH ×3 (09:31→20:37)
[2023-02-02] MEDS: Heparin 5,000 UNITS/ML VIAL SC SCH (20:37)
[2023-02-03] MEDS: Albumin 25% 25 GM/100 ML BOT IVPB SCH ×2 (00:01→05:54)
[2023-02-03] MEDS: Thiamine HCl 200 MG/2 ML VIAL SLOW IVP SCH (04:27)
[2023-02-03 04:44] LABS: Hemoglobin 10.7 g/dL (13.5-17.5); MDiff Complete? YES; Mean Corpuscular HGB CONC 33.4 g/dL (32.0-36.0); Mean Corpuscular Hemoglobin 33.9 pg (27.0-33.0); Mean Corpuscular Volume 101.3 fl (81.2-95.1); Mean Platelet Volume 8.8 fl (7.4-10.4); Platelet Count 182 10x3/uL (150-450); RBC Distribution Width 14.3 % (11.5-14.5); Red Blood Cell (RBC) Count 3.16 10x6/uL (4.32-5.72); White Blood Cell (WBC) Count 22.6 10x3/uL (3.5-10.5)
[2023-02-03 05:01] LABS: ALT (SGPT) 14 U/L (8-55); AST (SGOT) 23 U/L (5-34); Alkaline Phosphatase 66 U/L (40-110); Anion Gap 22 mmol/L (10-20); BUN (Urea Nitrogen) 86 mg/dL (8.4-25.7); Bilirubin, Total 1.8 mg/dL (0.2-1.2); Calc. Creatinine Clearance 19 mL/min (70-130); Calcium 8.3 mg/dL (7.8-10.44); Carbon Dioxide 12 mmol/L (22-29); Chloride 99 mmol/L (98-107); Estimated GFR 10; Globulin 1.8 g/dL (2.4-3.5); Glucose 117 mg/dL (70-105); Potassium 5.1 mmol/L (3.5-5.1); Protein, Total 5.8 g/dL (6.0-8.3); Sodium 128 mmol/L (136-145)
[2023-02-03] MEDS: cefTRIAXone\\ROCEPHIN 2 GM in Sodium Chloride 0.9% 100 ML IVPB SCH (05:18)
[2023-02-03 05:23] LABS: Anisocytosis SLIGHT = 6-15 cells (100X) (0-5/hpf); Eosinophils 1 % (0-10); Lymphocytes 6 % (21-51); Monocytes 6 % (0-10); Neutrophil 87 % (42-75)
[2023-02-03 05:24] LABS: Hypochromia SLIGHT = 6-15 cells (100X) (0-5/hpf); Platelet Morphology Comment Appears Adequate
[2023-02-03] MEDS: Octreotide Acetate 100 MCG/ML VIAL SC SCH ×3 (05:54→23:15)
[2023-02-03] MEDS: Sodium Chloride 256 MEQ in Sterile Water Injection 936 ML IV SCH (05:56)
[2023-02-03] MEDS ORDERED: ADMIXTURE FEE IV SCH (08:00)
[2023-02-03] MEDS ORDERED: SODIUM CHLORIDE IV SCH (08:00)
[2023-02-03] MEDS ORDERED: SODIUM BICARBONATE IV SCH (08:00)
[2023-02-03] MEDS: Heparin 5,000 UNITS/ML VIAL SC SCH ×2 (08:56→23:00)
[2023-02-03] MEDS: Sodium Chloride 1 GM TAB PO SCH ×3 (09:08→22:00)
[2023-02-03] MEDS: Sodium Bicarbonate Tab 325 MG TAB PO SCH ×3 (09:08→21:49)
[2023-02-03 13:10] LABS: HBSAB Concentration Less than 8.00 mIU/mL; Hep B Core Total Ab Non-Reactive (NonReactive); Hep B Core Total Index 0.07 S/CO (0-0.79); Hep B Surf AB Non-Reactive (NonReactive); Hep C IgG Ab Non-Reactive (NonReactive); Hep C Index 0.11 S/CO (0-0.79)
[2023-02-03 13:33] LABS: Anion Gap 20 mmol/L (10-20); BUN (Urea Nitrogen) 89 mg/dL (8.4-25.7); Calc. Creatinine Clearance 20 mL/min (70-130); Calcium 8.3 mg/dL (7.8-10.44); Carbon Dioxide 13 mmol/L (22-29); Chloride 100 mmol/L (98-107); Estimated GFR 10; Glucose 127 mg/dL (70-105); Sodium 128 mmol/L (136-145)
[2023-02-03 16:31] LABS: HBSAg Index 0.31 S/CO (0-0.99); Hep B Surf Ag Non-Reactive S/CO (NonReactive)
[2023-02-03] MEDS: Rifaximin 550 MG TAB PO SCH (21:49)
[2023-02-04 03:58] LABS: Hemoglobin 11.1 g/dL (13.5-17.5); Mean Corpuscular HGB CONC 33.6 g/dL (32.0-36.0); Mean Corpuscular Hemoglobin 33.9 pg (27.0-33.0); Mean Corpuscular Volume 100.9 fl (81.2-95.1); Mean Platelet Volume 8.7 fl (7.4-10.4); Platelet Count 176 10x3/uL (150-450); RBC Distribution Width 14.6 % (11.5-14.5); Red Blood Cell (RBC) Count 3.27 10x6/uL (4.32-5.72); White Blood Cell (WBC) Count 21.9 10x3/uL (3.5-10.5)
[2023-02-04] MEDS: Thiamine HCl 200 MG/2 ML VIAL SLOW IVP SCH (03:59)
[2023-02-04 04:12] LABS: ALT (SGPT) 19 U/L (8-55); AST (SGOT) 22 U/L (5-34); Albumin 3.9 g/dL (3.5-5.0); Alkaline Phosphatase 78 U/L (40-110); Anion Gap 20 mmol/L (10-20); BUN (Urea Nitrogen) 96 mg/dL (8.4-25.7); Bilirubin, Total 1.7 mg/dL (0.2-1.2); Calc. Creatinine Clearance 21 mL/min (70-130); Calcium 8.5 mg/dL (7.8-10.44); Carbon Dioxide 13 mmol/L (22-29); Chloride 101 mmol/L (98-107); Estimated GFR 11; Glucose 133 mg/dL (70-105); Protein, Total 5.9 g/dL (6.0-8.3); Sodium 129 mmol/L (136-145)
[2023-02-04 04:15] LABS: MDiff Complete? YES
[2023-02-04 04:18] LABS: Lymphocytes 2 % (21-51); Monocytes 5 % (0-10); Neutrophil 93 % (42-75)
[2023-02-04 04:19] LABS: Anisocytosis SLIGHT = 6-15 cells (100X) (0-5/hpf); Platelet Morphology Comment Appears Adequate
[2023-02-04] MEDS: cefTRIAXone\\ROCEPHIN 2 GM in Sodium Chloride 0.9% 100 ML IVPB SCH (06:39)
[2023-02-04] MEDS: Octreotide Acetate 100 MCG/ML VIAL SC SCH ×3 (07:30→22:10)
[2023-02-04] MEDS ORDERED: SODIUM BICARBONATE IV SCH (09:00)
[2023-02-04] MEDS ORDERED: SODIUM CHLORIDE IV SCH (09:00)
[2023-02-04] MEDS ORDERED: ADMIXTURE FEE IV SCH (09:00)
[2023-02-04] MEDS: Heparin 5,000 UNITS/ML VIAL SC SCH ×2 (09:47→22:10)
[2023-02-04] MEDS: Rifaximin 550 MG TAB PO SCH ×2 (09:48→22:08)
[2023-02-04] MEDS: Sodium Bicarbonate Tab 325 MG TAB PO SCH ×3 (09:48→22:08)
[2023-02-04] MEDS: Albumin 25% 25 GM/100 ML BOT IVPB SCH ×2 (09:56→17:21)
[2023-02-04] MEDS: Sodium Chloride 1 GM TAB PO SCH ×3 (10:09→22:08)
[2023-02-05] MEDS: Albumin 25% 25 GM/100 ML BOT IVPB SCH ×2 (01:40→10:49)
[2023-02-05] MEDS: Thiamine HCl 200 MG/2 ML VIAL SLOW IVP SCH (04:29)
[2023-02-05 04:31] LABS: #Eosinphils 0.2 10x3/uL (0.0-0.5); #Monocytes 1.1 10x3/uL (0.0-1.1); #Neutrophils 10.8 10x3/uL (1.5-8.4); %Basophils 0.3 % (0.0-2.0); %Eosinophils 1.4 % (0.0-6.0); %Monocytes 8.1 % (0.0-10.0); %Neutrophils 83.7 % (40.0-75.0); Hemoglobin 10.2 g/dL (13.5-17.5); Mean Corpuscular HGB CONC 34.3 g/dL (32.0-36.0); Mean Corpuscular Hemoglobin 33.7 pg (27.0-33.0); Mean Platelet Volume 8.6 fl (7.4-10.4); Platelet Count 143 10x3/uL (150-450); RBC Distribution Width 14.6 % (11.5-14.5); Red Blood Cell (RBC) Count 3.03 10x6/uL (4.32-5.72)
[2023-02-05 04:53] LABS: ALT (SGPT) 20 U/L (8-55); AST (SGOT) 24 U/L (5-34); Albumin 3.9 g/dL (3.5-5.0); Alkaline Phosphatase 76 U/L (40-110); Anion Gap 17 mmol/L (10-20); BUN (Urea Nitrogen) 85 mg/dL (8.4-25.7); Bilirubin, Total 1.9 mg/dL (0.2-1.2); Calc. Creatinine Clearance 39 mL/min (70-130); Calcium 8.7 mg/dL (7.8-10.44); Carbon Dioxide 19 mmol/L (22-29); Chloride 105 mmol/L (98-107); Estimated GFR 23; Glucose 149 mg/dL (70-105); Protein, Total 5.9 g/dL (6.0-8.3); Sodium 137 mmol/L (136-145)
[2023-02-05] MEDS: cefTRIAXone\\ROCEPHIN 2 GM in Sodium Chloride 0.9% 100 ML IVPB SCH (05:34)
[2023-02-05] MEDS: Octreotide Acetate 100 MCG/ML VIAL SC SCH ×3 (06:22→21:10)
[2023-02-05] MEDS ORDERED: SODIUM BICARBONATE IV SCH ×2 (09:00→10:00)
[2023-02-05] MEDS ORDERED: ADMIXTURE FEE IV SCH ×2 (09:00→10:00)
[2023-02-05] MEDS ORDERED: SODIUM CHLORIDE IV SCH ×2 (09:00→10:00)
[2023-02-05] MEDS: Sodium Bicarbonate Tab 325 MG TAB PO SCH ×3 (10:47→21:09)
[2023-02-05] MEDS: Rifaximin 550 MG TAB PO SCH ×2 (10:48→21:09)
[2023-02-05] MEDS: Benzonatate 100 MG CAP PO PRN (10:48)
[2023-02-05] MEDS: Heparin 5,000 UNITS/ML VIAL SC SCH ×2 (10:48→21:10)
[2023-02-05] MEDS: Sodium Chloride 1 GM TAB PO SCH ×3 (10:54→21:10)
[2023-02-06] MEDS: Thiamine HCl 200 MG/2 ML VIAL SLOW IVP SCH (04:44)
[2023-02-06] MEDS ORDERED: Morphine 2 MG/ML VIAL SLOW IVP SCH (05:00)
[2023-02-06 05:07] LABS: #Eosinphils 0.1 10x3/uL (0.0-0.5); #Monocytes 0.8 10x3/uL (0.0-1.1); #Neutrophils 7.9 10x3/uL (1.5-8.4); %Basophils 0.3 % (0.0-2.0); %Eosinophils 1.2 % (0.0-6.0); %Lymphocytes 8.4 % (18.0-47.0); %Monocytes 8.3 % (0.0-10.0); %Neutrophils 81.2 % (40.0-75.0); Hemoglobin 9.9 g/dL (13.5-17.5); Mean Corpuscular HGB CONC 34.7 g/dL (32.0-36.0); Mean Corpuscular Hemoglobin 33.9 pg (27.0-33.0); Mean Corpuscular Volume 97.6 fl (81.2-95.1); Mean Platelet Volume 8.5 fl (7.4-10.4); Platelet Count 113 10x3/uL (150-450); RBC Distribution Width 14.8 % (11.5-14.5); Red Blood Cell (RBC) Count 2.92 10x6/uL (4.32-5.72); White Blood Cell (WBC) Count 9.7 10x3/uL (3.5-10.5)
[2023-02-06] MEDS: cefTRIAXone\\ROCEPHIN 2 GM in Sodium Chloride 0.9% 100 ML IVPB SCH (05:22)
[2023-02-06] MEDS: Octreotide Acetate 100 MCG/ML VIAL SC SCH ×3 (05:23→22:07)
[2023-02-06 05:29] LABS: ALT (SGPT) 25 U/L (8-55); AST (SGOT) 33 U/L (5-34); Albumin 3.3 g/dL (3.5-5.0); Alkaline Phosphatase 74 U/L (40-110); Anion Gap 15 mmol/L (10-20); BUN (Urea Nitrogen) 61 mg/dL (8.4-25.7); Bilirubin, Total 1.7 mg/dL (0.2-1.2); Calc. Creatinine Clearance 85 mL/min (70-130); Calcium 8.3 mg/dL (7.8-10.44); Carbon Dioxide 22 mmol/L (22-29); Chloride 104 mmol/L (98-107); Estimated GFR 59; Globulin 2.1 g/dL (2.4-3.5); Glucose 144 mg/dL (70-105); Potassium 3.8 mmol/L (3.5-5.1); Protein, Total 5.4 g/dL (6.0-8.3); Sodium 137 mmol/L (136-145)
[2023-02-06] MEDS: Albumin 25% 25 GM/100 ML BOT IVPB SCH ×4 (06:55→23:58)
[2023-02-06] MEDS: Sodium Chloride 1 GM TAB PO SCH ×3 (08:14→20:15)
[2023-02-06] MEDS: Sodium Bicarbonate Tab 325 MG TAB PO SCH ×3 (08:14→20:15)
[2023-02-06] MEDS: Rifaximin 550 MG TAB PO SCH ×2 (08:14→20:15)
[2023-02-06] MEDS: Morphine 4 MG/ML VIAL SLOW IVP PRN (12:28)
[2023-02-07] MEDS: Thiamine HCl 200 MG/2 ML VIAL SLOW IVP SCH (03:45)
[2023-02-07 05:08] LABS: #Eosinphils 0.1 10x3/uL (0.0-0.5); #Monocytes 0.8 10x3/uL (0.0-1.1); #Neutrophils 7.1 10x3/uL (1.5-8.4); %Basophils 0.4 % (0.0-2.0); %Eosinophils 1.5 % (0.0-6.0); %Lymphocytes 9.8 % (18.0-47.0); %Monocytes 9.3 % (0.0-10.0); %Neutrophils 78.7 % (40.0-75.0); Hemoglobin 9.7 g/dL (13.5-17.5); Mean Corpuscular HGB CONC 33.8 g/dL (32.0-36.0); Mean Corpuscular Hemoglobin 33.6 pg (27.0-33.0); Mean Corpuscular Volume 99.3 fl (81.2-95.1); Mean Platelet Volume 8.7 fl (7.4-10.4); Platelet Count 105 10x3/uL (150-450); RBC Distribution Width 15.4 % (11.5-14.5); Red Blood Cell (RBC) Count 2.89 10x6/uL (4.32-5.72); White Blood Cell (WBC) Count 9.1 10x3/uL (3.5-10.5)
[2023-02-07 05:22] LABS: ALT (SGPT) 22 U/L (8-55); AST (SGOT) 28 U/L (5-34); Albumin 3.8 g/dL (3.5-5.0); Alkaline Phosphatase 64 U/L (40-110); Anion Gap 16 mmol/L (10-20); BUN (Urea Nitrogen) 41 mg/dL (8.4-25.7); Bilirubin, Total 2.4 mg/dL (0.2-1.2); Calc. Creatinine Clearance 130 mL/min (70-130); Calcium 8.8 mg/dL (7.8-10.44); Carbon Dioxide 22 mmol/L (22-29); Chloride 104 mmol/L (98-107); Estimated GFR 98; Globulin 2.3 g/dL (2.4-3.5); Glucose 140 mg/dL (70-105); Potassium 4.1 mmol/L (3.5-5.1); Protein, Total 6.1 g/dL (6.0-8.3); Sodium 138 mmol/L (136-145)
[2023-02-07] MEDS: cefTRIAXone\\ROCEPHIN 2 GM in Sodium Chloride 0.9% 100 ML IVPB SCH (05:39)
[2023-02-07] MEDS: Octreotide Acetate 100 MCG/ML VIAL SC SCH (05:39)
[2023-02-07] MEDS: Sodium Bicarbonate Tab 325 MG TAB PO SCH ×3 (08:07→20:25)
[2023-02-07] MEDS: Rifaximin 550 MG TAB PO SCH (08:07)
[2023-02-07] MEDS: Morphine 4 MG/ML VIAL SLOW IVP PRN ×2 (08:07→21:43)
[2023-02-07] MEDS: Sodium Chloride 1 GM TAB PO SCH ×3 (08:08→20:25)
[2023-02-07] MEDS ORDERED: Sodium Bicarbonate 2.5 MEQ/5 ML VIAL ONE (10:34)
[2023-02-07] MEDS ORDERED: Lidocaine 1% PF 5 ML VIAL ONE (10:34)
[2023-02-07 12:29] LABS: Body Fluid Source Ascites Body Fluid; Clarity Cloudy/Turbid (Clear); Tube # EDTA
[2023-02-07 12:30] LABS: BF Color Red
[2023-02-07] MEDS: Albumin 25% 25 GM/100 ML BOT IVPB SCH ×3 (13:11→23:39)
[2023-02-07] MEDS ORDERED: cefTRIAXone\\ROCEPHIN 2 GM in Sodium Chloride 0.9% 100 ML IVPB SCH ×2 (13:30→13:45)
[2023-02-07 15:25] LABS: BF Segmented Neutrophils 23 %
[2023-02-07 15:28] LABS: Cell Count Non Hematic 16 %
[2023-02-07 15:29] LABS: Eosinophils 1 %; Lymphocytes 59 %
[2023-02-08] MEDS: Thiamine HCl 200 MG/2 ML VIAL SLOW IVP SCH (04:00)
[2023-02-08 04:48] LABS: ALT (SGPT) 26 U/L (8-55); AST (SGOT) 32 U/L (5-34); Albumin 3.9 g/dL (3.5-5.0); Alkaline Phosphatase 59 U/L (40-110); Anion Gap 12 mmol/L (10-20); BUN (Urea Nitrogen) 27 mg/dL (8.4-25.7); Calc. Creatinine Clearance 159 mL/min (70-130); Calcium 8.6 mg/dL (7.8-10.44); Carbon Dioxide 26 mmol/L (22-29); Chloride 103 mmol/L (98-107); Estimated GFR 106; Glucose 119 mg/dL (70-105); Potassium 3.9 mmol/L (3.5-5.1); Protein, Total 5.9 g/dL (6.0-8.3); Sodium 137 mmol/L (136-145)
[2023-02-08 04:49] LABS: #Eosinphils 0.2 10x3/uL (0.0-0.5); #Monocytes 0.8 10x3/uL (0.0-1.1); #Neutrophils 7.1 10x3/uL (1.5-8.4); %Basophils 0.4 % (0.0-2.0); %Eosinophils 1.6 % (0.0-6.0); %Lymphocytes 10.8 % (18.0-47.0); %Monocytes 8.8 % (0.0-10.0); %Neutrophils 78.1 % (40.0-75.0); Mean Corpuscular HGB CONC 33.6 g/dL (32.0-36.0); Mean Corpuscular Hemoglobin 33.6 pg (27.0-33.0); Mean Platelet Volume 9.1 fl (7.4-10.4); Platelet Count 101 10x3/uL (150-450); RBC Distribution Width 15.9 % (11.5-14.5); Red Blood Cell (RBC) Count 2.98 10x6/uL (4.32-5.72); White Blood Cell (WBC) Count 9.1 10x3/uL (3.5-10.5)
[2023-02-08] MEDS: Albumin 25% 25 GM/100 ML BOT IVPB SCH (05:45)
[2023-02-08] MEDS: Morphine 4 MG/ML VIAL SLOW IVP PRN (05:58)
[2023-02-08] MEDS ORDERED: Spironolactone 25 MG TAB PO SCH (09:00)
[2023-02-08] MEDS ORDERED: Ciprofloxacin 500 MG TAB PO SCH (09:00)
[2023-02-08] MEDS: Sodium Bicarbonate Tab 325 MG TAB PO SCH (10:17)
[2023-02-08] MEDS: Sodium Chloride 1 GM TAB PO SCH (10:17)
[2023-02-08 13:17] VITALS: BP 119/72; TEMP 98.6
== END 2023-02-08 13:25 | disposition home or self-care (01) | DRG 871 ==
LOC: CSHERS 21:20 → CSHIMCU 23:55 → CSHTELE 01-30 16:01
PROVIDERS: ADMIT Family Medicine; ATTEND Family Medicine
PROC: 3E04329 Introduction of Other Anti-infective into Central Vein, Percutaneous Approach (ICD-10-PCS; principal; 2023-01-29)
PROC: 3E043XZ Introduction of Vasopressor into Central Vein, Percutaneous Approach (ICD-10-PCS; 2023-01-29)
PROC: 0W9G3ZZ Drainage of Peritoneal Cavity, Percutaneous Approach (ICD-10-PCS; 2023-01-29)
PROC: 02HV33Z Insertion of Infusion Device into Superior Vena Cava, Percutaneous Approach (ICD-10-PCS; 2023-01-29)
PROC: 0W9G3ZZ Drainage of Peritoneal Cavity, Percutaneous Approach (ICD-10-PCS; 2023-02-01)
PROC: 0W9G3ZZ Drainage of Peritoneal Cavity, Percutaneous Approach (ICD-10-PCS; 2023-02-07)
DX: A41.59 Other Gram-negative sepsis (principal); K65.2 Spontaneous bacterial peritonitis; R65.21 Severe sepsis with septic shock; K76.7 Hepatorenal syndrome; E87.1 Hypo-osmolality and hyponatremia; N17.9 Acute kidney failure, unspecified; Z20.822 Contact with and (suspected) exposure to COVID-19; K70.31 Alcoholic cirrhosis of liver with ascites; I25.10 Atherosclerotic heart disease of native coronary artery without angina pectoris; E83.42 Hypomagnesemia; E87.5 Hyperkalemia; K76.82 Hepatic encephalopathy; E11.22 Type 2 diabetes mellitus with diabetic chronic kidney disease; N18.32 Chronic kidney disease, stage 3b; E78.5 Hyperlipidemia, unspecified; M10.9 Gout, unspecified; Z88.1 Allergy status to other antibiotic agents; Z79.82 Long term (current) use of aspirin; Z79.899 Other long term (current) drug therapy; Z79.84 Long term (current) use of oral hypoglycemic drugs; Z95.5 Presence of coronary angioplasty implant and graft; Z87.891 Personal history of nicotine dependence; Z83.3 Family history of diabetes mellitus; Z80.42 Family history of malignant neoplasm of prostate
CPT/HCPCS: 36415; 36416; 49083; 51702; 71045; 72192; 74177; 76705; 76770; 80048; 80053; 80202; 81003; 81015; 82042; 82150; 82550; 82570; 82945; 83605; 83615; 83690; 83735; 83880; 83930; 83935; 84100; 84156; 84157; 84300; 84484; 84540; 85025; 85610; 85730; 86140; 86704; 87040; 87070; 87077; 87086; 87149; 87186; 87205; 87449; 87811; 87899; 88112; 88305; 89051; 93005; 93010; 94760; 96365; 96367; 96375; A4217; C9113; J0456; J0692; J0696; J1644; J1650; J2001; J2270; J2272; J2354; J2405; J2543; J3370; J3411; J3475; J3490; J7050; P9047; Q9967

== ENCOUNTER 2023-02-19 12:18 | Inpatient (IN) | payer OTHER ==
[2023-02-19 13:23] LABS: Actual Bicarbonate (HCO3v) 21 mEq/L (22-28); Base Excess -3.4 mEq/L (-2 - +2); Calcium, Ionized (venous) 1.09 mmol/L (1.16-1.32); Chloride (VBG) 94 mmol/L (98-106); Hemoglobin (Hb) 12.1 g/dL (13.1-17.2); Puncture Site Other Site; Sodium 127.9 mmol/L (133-146)
[2023-02-19 13:26] LABS: #Basophils 0.1 10x3/uL (0.0-0.2); #Eosinphils 0.2 10x3/uL (0.0-0.5); #Monocytes 1.6 10x3/uL (0.0-1.1); #Neutrophils 13.1 10x3/uL (1.5-8.4); %Basophils 0.3 % (0.0-2.0); %Eosinophils 1.5 % (0.0-6.0); %Monocytes 10.1 % (0.0-10.0); %Neutrophils 80.6 % (40.0-75.0); Mean Corpuscular HGB CONC 33.7 g/dL (32.0-36.0); Mean Corpuscular Hemoglobin 32.7 pg (27.0-33.0); Mean Platelet Volume 9.8 fl (7.4-10.4); Platelet Count 240 10x3/uL (150-450); RBC Distribution Width 16.5 % (11.5-14.5); Red Blood Cell (RBC) Count 3.36 10x6/uL (4.32-5.72); White Blood Cell (WBC) Count 16.2 10x3/uL (3.5-10.5)
[2023-02-19 13:32] LABS: INR-International Normal Ratio 1.6; PTT 34.7 sec (22.0-33.0); Prothrombin Time 16.7 sec (9.5-12.1)
[2023-02-19 13:36] LABS: ALT (SGPT) 55 U/L (8-55); AST (SGOT) 81 U/L (5-34); Albumin 3.2 g/dL (3.5-5.0); Alkaline Phosphatase 130 U/L (40-110); Anion Gap 18 mmol/L (10-20); BUN (Urea Nitrogen) 83 mg/dL (8.4-25.7); Bilirubin, Total 2.9 mg/dL (0.2-1.2); Calc. Creatinine Clearance 0 mL/min (70-130); Calcium 8.6 mg/dL (7.8-10.44); Carbon Dioxide 22 mmol/L (22-29); Chloride 96 mmol/L (98-107); Estimated GFR 25; Globulin 3.3 g/dL (2.4-3.5); Glucose 136 mg/dL (70-105); Lipase 301 U/L (8-78); Protein, Total 6.5 g/dL (6.0-8.3); Sodium 131 mmol/L (136-145)
[2023-02-19] MEDS ORDERED: Vancomycin 1 GM VIAL ONE (14:28)
[2023-02-19] MEDS ORDERED: Cefepime 2 GM VIAL ONE (14:29)
[2023-02-19] MEDS ORDERED: Senokot S 8.6-50 MG TAB PO PRN (16:18)
[2023-02-19] MEDS ORDERED: Guaifenesin DM 100-10/5 ML UDCUP PO PRN (16:18)
[2023-02-19] MEDS ORDERED: Ondansetron PF 4 MG/2 ML Vial IVP PRN (16:18)
[2023-02-19 16:19] LABS: Lactic Acid 3.1 mmol/L (0.5-2.2)
[2023-02-19] MEDS ORDERED: Piperacillin/Tazobactam 3.375 GM in Sodium Chloride 0.9% 100 ML IVPB SCH ×2 (17:00→20:00)
[2023-02-19] MEDS ORDERED: Spironolactone 25 MG TAB PO SCH ×2 (17:00)
[2023-02-19] MEDS: Albumin 25% 25 GM/100 ML BOT IVPB SCH ×2 (18:14→23:41)
[2023-02-19 20:35] LABS: Bilirubin Neg (Negative); Blood, Urine 25 (Negative); Clarity Slightly Cloudy (Clear); Glucose, Urine (Dipstick) Normal (Negative); Ketone, Urine 5 mg/dL (Negative); Leukocyte Negative (Negative); Nitrite Negative (Negative); Protein, Urine (Dipstick) 30 mg/dl (Neg-Trace); Urobilinogen Normal mg/dL (Less than 2)
[2023-02-19 20:43] LABS: CAUTI Indications for Culture Immunosuppressed; RBC/HPF 0-3 HPF (0-3); Squamous Epithelial 0-3 HPF (0-3); WBC/HPF 0-3 HPF (0-3)
[2023-02-19 20:44] LABS: Bacteria/HPF 1+ HPF (None Seen)
[2023-02-19 20:46] LABS: Urine Culture Reflex Yes Yes
[2023-02-19 21:08] LABS: Creatinine, Urine 140.05 mg/dL (63-166)
[2023-02-19] MEDS: Piperacillin/Tazobactam 3.375 GM in Sodium Chloride 0.9% 100 ML IVPB SCH (23:40)
[2023-02-19 23:46] LABS: Lactic Acid 1.6 mmol/L (0.5-2.2)
[2023-02-20] MEDS: HYDROcodone/Acetaminophen 5/325 mg Tablet PO PRN ×2 (02:01→20:15)
[2023-02-20 05:23] LABS: #Basophils 0.1 10x3/uL (0.0-0.2); #Eosinphils 0.3 10x3/uL (0.0-0.5); #Monocytes 1.9 10x3/uL (0.0-1.1); #Neutrophils 11.9 10x3/uL (1.5-8.4); %Basophils 0.4 % (0.0-2.0); %Eosinophils 1.8 % (0.0-6.0); %Monocytes 12.2 % (0.0-10.0); %Neutrophils 77.2 % (40.0-75.0); Hemoglobin 9.8 g/dL (13.5-17.5); Mean Corpuscular HGB CONC 33.4 g/dL (32.0-36.0); Mean Corpuscular Hemoglobin 32.6 pg (27.0-33.0); Mean Corpuscular Volume 97.3 fl (81.2-95.1); Mean Platelet Volume 9.6 fl (7.4-10.4); Platelet Count 183 10x3/uL (150-450); RBC Distribution Width 16.2 % (11.5-14.5); Red Blood Cell (RBC) Count 3.01 10x6/uL (4.32-5.72); White Blood Cell (WBC) Count 15.4 10x3/uL (3.5-10.5)
[2023-02-20 05:38] LABS: ALT (SGPT) 50 U/L (8-55); AST (SGOT) 76 U/L (5-34); Albumin 3.4 g/dL (3.5-5.0); Alkaline Phosphatase 102 U/L (40-110); Anion Gap 16 mmol/L (10-20); BUN (Urea Nitrogen) 88 mg/dL (8.4-25.7); Bilirubin, Total 2.5 mg/dL (0.2-1.2); Calc. Creatinine Clearance 42 mL/min (70-130); Calcium 8.8 mg/dL (7.8-10.44); Carbon Dioxide 23 mmol/L (22-29); Chloride 97 mmol/L (98-107); Estimated GFR 25; Globulin 3.1 g/dL (2.4-3.5); Glucose 129 mg/dL (70-105); Lipase 261 U/L (8-78); Potassium 4.9 mmol/L (3.5-5.1); Protein, Total 6.5 g/dL (6.0-8.3); Sodium 131 mmol/L (136-145)
[2023-02-20] MEDS ORDERED: Furosemide 40 MG/4 ML VIAL SLOW IVP SCH (06:00)
[2023-02-20] MEDS: Albumin 25% 25 GM/100 ML BOT IVPB SCH ×3 (06:10→18:01)
[2023-02-20] MEDS ORDERED: Spironolactone 25 MG TAB PO SCH (08:00)
[2023-02-20] MEDS ORDERED: Phytonadione 10 MG/ML AMP SC SCH (08:15)
[2023-02-20] MEDS: Piperacillin/Tazobactam 3.375 GM in Sodium Chloride 0.9% 100 ML IVPB SCH ×2 (08:17→15:49)
[2023-02-20] MEDS: Gabapentin 300 MG CAP PO SCH ×3 (08:56→21:18)
[2023-02-20] MEDS: Ciprofloxacin 500 MG TAB PO SCH (09:01)
[2023-02-20 11:14] LABS: Fluid, pH - Pleural Fld 7.37 (7.60 - 7.66)
[2023-02-20 13:23] LABS: BF Color Red; Body Fluid Source Thoracentesis Fluid; Clarity Cloudy/Turbid (Clear); Tube # EDTA
[2023-02-20 13:28] LABS: BF Segmented Neutrophils 53 %
[2023-02-20 13:29] LABS: Cell Count Non Hematic 18 %; Lymphocytes 29 %
[2023-02-20 14:39] LABS: Pleural Fluid, Protein 2.3 g/dL
[2023-02-21] MEDS: Albumin 25% 25 GM/100 ML BOT IVPB SCH ×4 (00:05→20:16)
[2023-02-21] MEDS: Piperacillin/Tazobactam 3.375 GM in Sodium Chloride 0.9% 100 ML IVPB SCH ×3 (00:10→15:54)
[2023-02-21] MEDS ORDERED: Morphine 2 MG/ML VIAL SLOW IVP SCH (06:30)
[2023-02-21] MEDS: Gabapentin 300 MG CAP PO SCH ×3 (08:35→20:15)
[2023-02-21] MEDS: Ciprofloxacin 500 MG TAB PO SCH (08:35)
[2023-02-21 08:44] LABS: ALT (SGPT) 43 U/L (8-55); AST (SGOT) 61 U/L (5-34); Alkaline Phosphatase 91 U/L (40-110); Anion Gap 17 mmol/L (10-20); BUN (Urea Nitrogen) 91 mg/dL (8.4-25.7); Bilirubin, Total 2.4 mg/dL (0.2-1.2); Calc. Creatinine Clearance 42 mL/min (70-130); Calcium 9.1 mg/dL (7.8-10.44); Carbon Dioxide 23 mmol/L (22-29); Chloride 99 mmol/L (98-107); Estimated GFR 25; Globulin 2.6 g/dL (2.4-3.5); Glucose 112 mg/dL (70-105); Potassium 5.1 mmol/L (3.5-5.1); Protein, Total 6.6 g/dL (6.0-8.3); Sodium 134 mmol/L (136-145)
[2023-02-21] MEDS ORDERED: Lidocaine 1% PF 5 ML VIAL ONE (12:10)
[2023-02-21] MEDS ORDERED: Sodium Bicarbonate 2.5 MEQ/5 ML VIAL ONE (12:10)
[2023-02-21 17:39] LABS: BF Color Red; Body Fluid Source Pleural Fluid; Clarity Cloudy/Turbid (Clear); Tube # EDTA
[2023-02-21 19:45] LABS: BF Segmented Neutrophils 14 %; Cell Count Non Hematic 11 %; Lymphocytes 75 %
[2023-02-21] MEDS: Rifaximin 550 MG TAB PO SCH (20:15)
[2023-02-21] MEDS ORDERED: Albumin 25% 25 GM/100 ML BOT IVPB SCH (20:15)
[2023-02-21 20:47] LABS: Pleural Fluid, Protein 2.7 g/dL
[2023-02-22] MEDS: Piperacillin/Tazobactam 3.375 GM in Sodium Chloride 0.9% 100 ML IVPB SCH ×4 (00:23→23:38)
[2023-02-22] MEDS: Albumin 25% 25 GM/100 ML BOT IVPB SCH ×3 (03:16→15:04)
[2023-02-22 04:17] LABS: ALT (SGPT) 40 U/L (8-55); AST (SGOT) 47 U/L (5-34); Albumin 4.4 g/dL (3.5-5.0); Alkaline Phosphatase 91 U/L (40-110); Anion Gap 17 mmol/L (10-20); BUN (Urea Nitrogen) 83 mg/dL (8.4-25.7); Bilirubin, Total 2.6 mg/dL (0.2-1.2); Calc. Creatinine Clearance 49 mL/min (70-130); Calcium 9.2 mg/dL (7.8-10.44); Carbon Dioxide 25 mmol/L (22-29); Chloride 99 mmol/L (98-107); Estimated GFR 30; Globulin 2.5 g/dL (2.4-3.5); Glucose 138 mg/dL (70-105); Potassium 4.5 mmol/L (3.5-5.1); Protein, Total 6.9 g/dL (6.0-8.3); Sodium 136 mmol/L (136-145)
[2023-02-22] MEDS: Gabapentin 300 MG CAP PO SCH ×3 (08:14→20:14)
[2023-02-22] MEDS: Ciprofloxacin 500 MG TAB PO SCH (08:15)
[2023-02-22] MEDS: Rifaximin 550 MG TAB PO SCH ×2 (08:16→20:14)
[2023-02-22] MEDS: HYDROcodone/Acetaminophen 5/325 mg Tablet PO PRN ×2 (10:44→17:38)
[2023-02-23 04:02] LABS: ALT (SGPT) 35 U/L (8-55); AST (SGOT) 42 U/L (5-34); Albumin 4.1 g/dL (3.5-5.0); Alkaline Phosphatase 83 U/L (40-110); Anion Gap 16 mmol/L (10-20); BUN (Urea Nitrogen) 71 mg/dL (8.4-25.7); Bilirubin, Total 2.5 mg/dL (0.2-1.2); Calc. Creatinine Clearance 61 mL/min (70-130); Calcium 9.1 mg/dL (7.8-10.44); Carbon Dioxide 24 mmol/L (22-29); Chloride 100 mmol/L (98-107); Estimated GFR 39; Globulin 2.4 g/dL (2.4-3.5); Glucose 148 mg/dL (70-105); Potassium 4.6 mmol/L (3.5-5.1); Protein, Total 6.5 g/dL (6.0-8.3); Sodium 135 mmol/L (136-145)
[2023-02-23] MEDS: Albumin 25% 25 GM/100 ML BOT IVPB SCH ×3 (08:07→17:20)
[2023-02-23] MEDS: Piperacillin/Tazobactam 3.375 GM in Sodium Chloride 0.9% 100 ML IVPB SCH ×2 (08:07→15:55)
[2023-02-23] MEDS: Gabapentin 300 MG CAP PO SCH ×3 (08:08→20:57)
[2023-02-23] MEDS: Ciprofloxacin 500 MG TAB PO SCH (09:36)
[2023-02-23] MEDS: Rifaximin 550 MG TAB PO SCH ×2 (09:36→20:57)
[2023-02-23] MEDS ORDERED: Albumin 25% 25 GM/100 ML BOT IVPB SCH (12:00)
[2023-02-23] MEDS ORDERED: Furosemide 40 MG/4 ML VIAL SLOW IVP SCH (17:30)
[2023-02-24] MEDS: Piperacillin/Tazobactam 3.375 GM in Sodium Chloride 0.9% 100 ML IVPB SCH ×4 (00:20→23:20)
[2023-02-24] MEDS: Albumin 25% 25 GM/100 ML BOT IVPB SCH (00:45)
[2023-02-24 04:57] LABS: ALT (SGPT) 40 U/L (8-55); AST (SGOT) 56 U/L (5-34); Alkaline Phosphatase 104 U/L (40-110); Anion Gap 19 mmol/L (10-20); BUN (Urea Nitrogen) 65 mg/dL (8.4-25.7); Bilirubin, Total 2.7 mg/dL (0.2-1.2); Calc. Creatinine Clearance 86 mL/min (70-130); Calcium 9.6 mg/dL (7.8-10.44); Carbon Dioxide 24 mmol/L (22-29); Chloride 99 mmol/L (98-107); Estimated GFR 58; Globulin 2.7 g/dL (2.4-3.5); Glucose 133 mg/dL (70-105); Potassium 4.5 mmol/L (3.5-5.1); Protein, Total 6.7 g/dL (6.0-8.3); Sodium 137 mmol/L (136-145)
[2023-02-24] MEDS ORDERED: Lorazepam 2 MG/ML VIAL SLOW IVP SCH (05:00)
[2023-02-24] MEDS ORDERED: Haloperidol Lactate 5 MG/ML VIAL IM SCH (05:00)
[2023-02-24] MEDS ORDERED: Furosemide 40 MG/4 ML VIAL SLOW IVP SCH (05:30)
[2023-02-24] MEDS ORDERED: Albumin 25% 25 GM/100 ML BOT IVPB SCH (06:30)
[2023-02-24] MEDS: Rifaximin 550 MG TAB PO SCH ×2 (09:40→20:47)
[2023-02-24] MEDS: Gabapentin 300 MG CAP PO SCH ×3 (09:46→20:47)
[2023-02-24 18:54] LABS: Magnesium 1.9 mg/dL (1.6-2.6); Phosphorus 3.5 mg/dL (2.3-4.7)
[2023-02-25 03:33] LABS: #Basophils 0.1 10x3/uL (0.0-0.2); #Eosinphils 0.3 10x3/uL (0.0-0.5); #Monocytes 1.4 10x3/uL (0.0-1.1); #Neutrophils 8.6 10x3/uL (1.5-8.4); %Basophils 0.7 % (0.0-2.0); %Eosinophils 2.8 % (0.0-6.0); %Lymphocytes 12.1 % (18.0-47.0); Hemoglobin 9.8 g/dL (13.5-17.5); Mean Corpuscular Hemoglobin 32.7 pg (27.0-33.0); Mean Platelet Volume 8.8 fl (7.4-10.4); Platelet Count 170 10x3/uL (150-450); RBC Distribution Width 16.7 % (11.5-14.5)
[2023-02-25 03:54] LABS: ALT (SGPT) 65 U/L (8-55); AST (SGOT) 97 U/L (5-34); Albumin 3.8 g/dL (3.5-5.0); Alkaline Phosphatase 110 U/L (40-110); Anion Gap 14 mmol/L (10-20); BUN (Urea Nitrogen) 51 mg/dL (8.4-25.7); Bilirubin, Total 2.9 mg/dL (0.2-1.2); Calc. Creatinine Clearance 103 mL/min (70-130); Calcium 9.4 mg/dL (7.8-10.44); Carbon Dioxide 29 mmol/L (22-29); Chloride 99 mmol/L (98-107); Estimated GFR 73; Globulin 2.5 g/dL (2.4-3.5); Glucose 115 mg/dL (70-105); Potassium 3.9 mmol/L (3.5-5.1); Protein, Total 6.3 g/dL (6.0-8.3); Sodium 138 mmol/L (136-145)
[2023-02-25] MEDS: Piperacillin/Tazobactam 3.375 GM in Sodium Chloride 0.9% 100 ML IVPB SCH ×3 (07:22→23:14)
[2023-02-25] MEDS: Rifaximin 550 MG TAB PO SCH ×2 (08:38→21:04)
[2023-02-25] MEDS: Gabapentin 300 MG CAP PO SCH ×3 (08:38→21:04)
[2023-02-25] MEDS: Albumin 25% 25 GM/100 ML BOT IVPB SCH ×2 (08:41→14:27)
[2023-02-25] MEDS: Furosemide 20 MG TAB PO SCH (08:41)
[2023-02-25] MEDS: Spironolactone 25 MG TAB PO SCH (08:42)
[2023-02-25 11:21] LABS: SARS-CoV-2 NAA Rapid Test Not Detected (NotDetected)
[2023-02-25 17:10] LABS: Fungus Stain Final report (.)
[2023-02-26 04:02] LABS: #Basophils 0.1 10x3/uL (0.0-0.2); #Eosinphils 0.3 10x3/uL (0.0-0.5); #Monocytes 1.1 10x3/uL (0.0-1.1); #Neutrophils 7.8 10x3/uL (1.5-8.4); %Basophils 0.7 % (0.0-2.0); %Eosinophils 2.7 % (0.0-6.0); %Lymphocytes 11.6 % (18.0-47.0); %Monocytes 10.7 % (0.0-10.0); Hemoglobin 9.3 g/dL (13.5-17.5); Mean Corpuscular HGB CONC 32.9 g/dL (32.0-36.0); Mean Corpuscular Hemoglobin 32.3 pg (27.0-33.0); Mean Corpuscular Volume 98.3 fl (81.2-95.1); Mean Platelet Volume 9.3 fl (7.4-10.4); Platelet Count 189 10x3/uL (150-450); Red Blood Cell (RBC) Count 2.88 10x6/uL (4.32-5.72); White Blood Cell (WBC) Count 10.5 10x3/uL (3.5-10.5)
[2023-02-26 04:17] LABS: ALT (SGPT) 86 U/L (8-55); AST (SGOT) 120 U/L (5-34); Albumin 3.8 g/dL (3.5-5.0); Alkaline Phosphatase 126 U/L (40-110); Anion Gap 15 mmol/L (10-20); BUN (Urea Nitrogen) 36 mg/dL (8.4-25.7); Bilirubin, Total 3.2 mg/dL (0.2-1.2); Calc. Creatinine Clearance 133 mL/min (70-130); Calcium 9.4 mg/dL (7.8-10.44); Carbon Dioxide 28 mmol/L (22-29); Chloride 99 mmol/L (98-107); Estimated GFR 102; Globulin 2.5 g/dL (2.4-3.5); Glucose 125 mg/dL (70-105); Potassium 3.6 mmol/L (3.5-5.1); Protein, Total 6.3 g/dL (6.0-8.3); Sodium 138 mmol/L (136-145)
[2023-02-26] MEDS: Spironolactone 25 MG TAB PO SCH ×2 (08:04→08:44)
[2023-02-26] MEDS: Gabapentin 300 MG CAP PO SCH ×3 (08:04→20:18)
[2023-02-26] MEDS: Piperacillin/Tazobactam 3.375 GM in Sodium Chloride 0.9% 100 ML IVPB SCH ×2 (08:04→15:44)
[2023-02-26] MEDS: Furosemide 20 MG TAB PO SCH (08:05)
[2023-02-26] MEDS: Rifaximin 550 MG TAB PO SCH ×2 (08:05→20:17)
[2023-02-26] MEDS ORDERED: VANCOMYCIN 1.75 GM/350 ML BAG 1.75 GM in Premix Bag 1 BAG IVPB SCH (15:00)
[2023-02-26] MEDS: HYDROcodone/Acetaminophen 5/325 mg Tablet PO PRN (20:17)
[2023-02-27] MEDS: Piperacillin/Tazobactam 3.375 GM in Sodium Chloride 0.9% 100 ML IVPB SCH ×4 (00:03→23:09)
[2023-02-27] MEDS: VANCOMYCIN 1.25 GM/250 ML BAG 1.25 GM in Premix Bag 1 BAG IVPB SCH ×2 (03:02→14:43)
[2023-02-27] MEDS: HYDROcodone/Acetaminophen 5/325 mg Tablet PO PRN ×3 (03:57→20:05)
[2023-02-27 04:20] LABS: ALT (SGPT) 105 U/L (8-55); AST (SGOT) 125 U/L (5-34); Albumin 3.5 g/dL (3.5-5.0); Alkaline Phosphatase 138 U/L (40-110); Anion Gap 14 mmol/L (10-20); BUN (Urea Nitrogen) 30 mg/dL (8.4-25.7); Bilirubin, Total 3.4 mg/dL (0.2-1.2); Calc. Creatinine Clearance 130 mL/min (70-130); Calcium 9.3 mg/dL (7.8-10.44); Carbon Dioxide 27 mmol/L (22-29); Chloride 101 mmol/L (98-107); Estimated GFR 102; Globulin 2.7 g/dL (2.4-3.5); Glucose 116 mg/dL (70-105); Potassium 3.9 mmol/L (3.5-5.1); Protein, Total 6.2 g/dL (6.0-8.3); Sodium 138 mmol/L (136-145)
[2023-02-27 04:24] LABS: #Basophils 0.1 10x3/uL (0.0-0.2); #Eosinphils 0.3 10x3/uL (0.0-0.5); #Monocytes 1.2 10x3/uL (0.0-1.1); %Basophils 0.9 % (0.0-2.0); %Eosinophils 2.3 % (0.0-6.0); %Lymphocytes 13.6 % (18.0-47.0); %Monocytes 10.7 % (0.0-10.0); %Neutrophils 72.1 % (40.0-75.0); Hemoglobin 9.9 g/dL (13.5-17.5); Mean Corpuscular HGB CONC 32.4 g/dL (32.0-36.0); Mean Corpuscular Hemoglobin 32.4 pg (27.0-33.0); Mean Platelet Volume 9.4 fl (7.4-10.4); Platelet Count 162 10x3/uL (150-450); RBC Distribution Width 17.5 % (11.5-14.5); Red Blood Cell (RBC) Count 3.06 10x6/uL (4.32-5.72); White Blood Cell (WBC) Count 11.1 10x3/uL (3.5-10.5)
[2023-02-27] MEDS: Gabapentin 300 MG CAP PO SCH ×3 (08:25→20:05)
[2023-02-27] MEDS: Furosemide 20 MG TAB PO SCH (08:25)
[2023-02-27] MEDS: Rifaximin 550 MG TAB PO SCH ×2 (08:27→20:06)
[2023-02-27] MEDS: Spironolactone 25 MG TAB PO SCH (08:39)
[2023-02-28] MEDS: VANCOMYCIN 1.25 GM/250 ML BAG 1.25 GM in Premix Bag 1 BAG IVPB SCH (02:16)
[2023-02-28] MEDS: HYDROcodone/Acetaminophen 5/325 mg Tablet PO PRN ×2 (02:16→13:19)
[2023-02-28 02:45] LABS: #Basophils 0.1 10x3/uL (0.0-0.2); #Eosinphils 0.3 10x3/uL (0.0-0.5); #Monocytes 1.2 10x3/uL (0.0-1.1); #Neutrophils 10.5 10x3/uL (1.5-8.4); %Basophils 0.9 % (0.0-2.0); %Eosinophils 2.3 % (0.0-6.0); %Lymphocytes 11.7 % (18.0-47.0); %Monocytes 8.5 % (0.0-10.0); %Neutrophils 76.2 % (40.0-75.0); Hemoglobin 10.1 g/dL (13.5-17.5); Mean Corpuscular HGB CONC 31.8 g/dL (32.0-36.0); Mean Corpuscular Hemoglobin 32.4 pg (27.0-33.0); Mean Corpuscular Volume 101.9 fl (81.2-95.1); Mean Platelet Volume 8.8 fl (7.4-10.4); Platelet Count 154 10x3/uL (150-450); RBC Distribution Width 17.5 % (11.5-14.5); Red Blood Cell (RBC) Count 3.12 10x6/uL (4.32-5.72); White Blood Cell (WBC) Count 13.8 10x3/uL (3.5-10.5)
[2023-02-28 02:58] LABS: Vancomycin, Trough 19.5 ug/mL
[2023-02-28 03:02] LABS: ALT (SGPT) 97 U/L (8-55); AST (SGOT) 106 U/L (5-34); Albumin 3.7 g/dL (3.5-5.0); Alkaline Phosphatase 141 U/L (40-110); Anion Gap 14 mmol/L (10-20); BUN (Urea Nitrogen) 28 mg/dL (8.4-25.7); Bilirubin, Total 3.1 mg/dL (0.2-1.2); Calc. Creatinine Clearance 119 mL/min (70-130); Calcium 9.3 mg/dL (7.8-10.44); Carbon Dioxide 27 mmol/L (22-29); Chloride 99 mmol/L (98-107); Estimated GFR 95; Glucose 114 mg/dL (70-105); Potassium 4.3 mmol/L (3.5-5.1); Protein, Total 6.7 g/dL (6.0-8.3); Sodium 136 mmol/L (136-145)
[2023-02-28] MEDS: Piperacillin/Tazobactam 3.375 GM in Sodium Chloride 0.9% 100 ML IVPB SCH ×3 (08:54→23:31)
[2023-02-28] MEDS: Gabapentin 300 MG CAP PO SCH ×3 (08:55→20:31)
[2023-02-28] MEDS: Furosemide 20 MG TAB PO SCH (08:55)
[2023-02-28] MEDS: Rifaximin 550 MG TAB PO SCH ×2 (08:56→20:31)
[2023-02-28] MEDS: Spironolactone 25 MG TAB PO SCH (08:57)
[2023-03-01] MEDS: VANCOMYCIN 1.25 GM/250 ML BAG 1.25 GM in Premix Bag 1 BAG IVPB SCH ×2 (03:41→20:10)
[2023-03-01 04:12] LABS: #Basophils 0.1 10x3/uL (0.0-0.2); #Eosinphils 0.3 10x3/uL (0.0-0.5); #Monocytes 1.2 10x3/uL (0.0-1.1); #Neutrophils 12.7 10x3/uL (1.5-8.4); %Basophils 0.9 % (0.0-2.0); %Eosinophils 1.8 % (0.0-6.0); %Lymphocytes 8.8 % (18.0-47.0); %Monocytes 7.6 % (0.0-10.0); %Neutrophils 80.6 % (40.0-75.0); Mean Corpuscular HGB CONC 31.1 g/dL (32.0-36.0); Mean Corpuscular Hemoglobin 32.4 pg (27.0-33.0); Mean Corpuscular Volume 104.2 fl (81.2-95.1); Mean Platelet Volume 9.1 fl (7.4-10.4); Platelet Count 134 10x3/uL (150-450); RBC Distribution Width 17.4 % (11.5-14.5); Red Blood Cell (RBC) Count 3.09 10x6/uL (4.32-5.72); White Blood Cell (WBC) Count 15.8 10x3/uL (3.5-10.5)
[2023-03-01 04:22] LABS: ALT (SGPT) 86 U/L (8-55); AST (SGOT) 91 U/L (5-34); Albumin 3.4 g/dL (3.5-5.0); Alkaline Phosphatase 135 U/L (40-110); Anion Gap 14 mmol/L (10-20); BUN (Urea Nitrogen) 27 mg/dL (8.4-25.7); Bilirubin, Total 2.6 mg/dL (0.2-1.2); Calc. Creatinine Clearance 133 mL/min (70-130); Calcium 9.3 mg/dL (7.8-10.44); Carbon Dioxide 25 mmol/L (22-29); Chloride 100 mmol/L (98-107); Estimated GFR 102; Globulin 3.3 g/dL (2.4-3.5); Glucose 124 mg/dL (70-105); Potassium 4.9 mmol/L (3.5-5.1); Protein, Total 6.7 g/dL (6.0-8.3); Sodium 134 mmol/L (136-145)
[2023-03-01] MEDS: Gabapentin 300 MG CAP PO SCH ×3 (08:54→20:10)
[2023-03-01] MEDS: Furosemide 20 MG TAB PO SCH (08:54)
[2023-03-01] MEDS: Piperacillin/Tazobactam 3.375 GM in Sodium Chloride 0.9% 100 ML IVPB SCH ×2 (08:55→15:47)
[2023-03-01] MEDS: Rifaximin 550 MG TAB PO SCH ×2 (08:55→20:10)
[2023-03-01] MEDS: HYDROcodone/Acetaminophen 5/325 mg Tablet PO PRN ×2 (09:01→20:52)
[2023-03-01] MEDS: Spironolactone 25 MG TAB PO SCH (09:01)
[2023-03-01 21:24] LABS: Vancomycin, Trough 14.7 ug/mL
[2023-03-01] MEDS ORDERED: Lidocaine 1% (PF) 30 ML VIAL ONE (22:03)
[2023-03-01] MEDS ORDERED: Lidocaine 1% (PF) 30 ML VIAL FS SCH (23:00)
[2023-03-02] MEDS: Piperacillin/Tazobactam 3.375 GM in Sodium Chloride 0.9% 100 ML IVPB SCH ×2 (00:13→08:18)
[2023-03-02 00:29] LABS: BF Color Red; Body Fluid Source Pleural Fluid; Clarity Cloudy/Turbid (Clear); Tube # EDTA
[2023-03-02 00:31] LABS: BF Segmented Neutrophils 3 %; Cell Count Non Hematic 5 %; Lymphocytes 92 %
[2023-03-02 03:43] LABS: #Basophils 0.1 10x3/uL (0.0-0.2); #Eosinphils 0.3 10x3/uL (0.0-0.5); #Monocytes 1.2 10x3/uL (0.0-1.1); #Neutrophils 9.1 10x3/uL (1.5-8.4); %Basophils 0.8 % (0.0-2.0); %Eosinophils 2.1 % (0.0-6.0); %Lymphocytes 12.5 % (18.0-47.0); %Monocytes 9.9 % (0.0-10.0); %Neutrophils 74.4 % (40.0-75.0); Hemoglobin 9.7 g/dL (13.5-17.5); Mean Corpuscular HGB CONC 31.8 g/dL (32.0-36.0); Mean Corpuscular Hemoglobin 32.8 pg (27.0-33.0); Mean Platelet Volume 9.3 fl (7.4-10.4); Platelet Count 106 10x3/uL (150-450); RBC Distribution Width 17.6 % (11.5-14.5); Red Blood Cell (RBC) Count 2.96 10x6/uL (4.32-5.72); White Blood Cell (WBC) Count 12.2 10x3/uL (3.5-10.5)
[2023-03-02 03:52] LABS: ALT (SGPT) 90 U/L (8-55); AST (SGOT) 95 U/L (5-34); Albumin 3.2 g/dL (3.5-5.0); Alkaline Phosphatase 143 U/L (40-110); Anion Gap 12 mmol/L (10-20); BUN (Urea Nitrogen) 27 mg/dL (8.4-25.7); Bilirubin, Total 2.1 mg/dL (0.2-1.2); Calc. Creatinine Clearance 134 mL/min (70-130); Calcium 9.2 mg/dL (7.8-10.44); Carbon Dioxide 28 mmol/L (22-29); Chloride 101 mmol/L (98-107); Estimated GFR 103; Glucose 113 mg/dL (70-105); Potassium 4.4 mmol/L (3.5-5.1); Protein, Total 6.2 g/dL (6.0-8.3); Sodium 137 mmol/L (136-145)
[2023-03-02] MEDS ORDERED: Piperacillin/Tazobactam 3.375 GM in Sodium Chloride 0.9% 100 ML IVPB SCH (08:15)
[2023-03-02] MEDS: Furosemide 20 MG TAB PO SCH (08:29)
[2023-03-02] MEDS: Gabapentin 300 MG CAP PO SCH ×3 (08:30→21:02)
[2023-03-02] MEDS: Spironolactone 25 MG TAB PO SCH (08:34)
[2023-03-02] MEDS: Rifaximin 550 MG TAB PO SCH ×2 (08:34→21:02)
[2023-03-02 13:29] LABS: Pleural Fluid, Protein 3.5 g/dL
[2023-03-02] MEDS: VANCOMYCIN 1.25 GM/250 ML BAG 1.25 GM in Premix Bag 1 BAG IVPB SCH (14:26)
[2023-03-02] MEDS: HYDROcodone/Acetaminophen 5/325 mg Tablet PO PRN ×2 (14:37→23:51)
[2023-03-03 04:52] LABS: #Basophils 0.1 10x3/uL (0.0-0.2); #Eosinphils 0.3 10x3/uL (0.0-0.5); #Neutrophils 9.3 10x3/uL (1.5-8.4); %Basophils 0.7 % (0.0-2.0); %Eosinophils 2.2 % (0.0-6.0); %Lymphocytes 12.7 % (18.0-47.0); %Neutrophils 76.2 % (40.0-75.0); Hemoglobin 9.6 g/dL (13.5-17.5); Mean Corpuscular HGB CONC 31.6 g/dL (32.0-36.0); Mean Corpuscular Hemoglobin 32.4 pg (27.0-33.0); Mean Corpuscular Volume 102.7 fl (81.2-95.1); Mean Platelet Volume 9.5 fl (7.4-10.4); Platelet Count 111 10x3/uL (150-450); RBC Distribution Width 17.9 % (11.5-14.5); Red Blood Cell (RBC) Count 2.96 10x6/uL (4.32-5.72); White Blood Cell (WBC) Count 12.2 10x3/uL (3.5-10.5)
[2023-03-03 05:20] LABS: ALT (SGPT) 91 U/L (8-55); AST (SGOT) 94 U/L (5-34); Albumin 3.1 g/dL (3.5-5.0); Alkaline Phosphatase 140 U/L (40-110); Anion Gap 13 mmol/L (10-20); BUN (Urea Nitrogen) 27 mg/dL (8.4-25.7); Bilirubin, Total 2.1 mg/dL (0.2-1.2); Calc. Creatinine Clearance 123 mL/min (70-130); Calcium 9.2 mg/dL (7.8-10.44); Carbon Dioxide 30 mmol/L (22-29); Chloride 99 mmol/L (98-107); Estimated GFR 101; Globulin 3.1 g/dL (2.4-3.5); Glucose 114 mg/dL (70-105); Potassium 4.9 mmol/L (3.5-5.1); Protein, Total 6.2 g/dL (6.0-8.3); Sodium 137 mmol/L (136-145)
[2023-03-03] MEDS: Gabapentin 300 MG CAP PO SCH ×3 (08:37→21:59)
[2023-03-03] MEDS: Furosemide 20 MG TAB PO SCH (08:37)
[2023-03-03] MEDS: Rifaximin 550 MG TAB PO SCH ×2 (08:38→21:59)
[2023-03-03] MEDS: VANCOMYCIN 1.25 GM/250 ML BAG 1.25 GM in Premix Bag 1 BAG IVPB SCH (08:53)
[2023-03-03 08:54] LABS: Vancomycin, Trough 14.3 ug/mL
[2023-03-03] MEDS: Spironolactone 25 MG TAB PO SCH (09:36)
[2023-03-03] MEDS: HYDROcodone/Acetaminophen 5/325 mg Tablet PO PRN (17:06)
[2023-03-03 21:29] LABS: SARS-CoV-2 NAA Rapid Test Not Detected (NotDetected)
[2023-03-04 02:03] VITALS: BP 104/61; TEMP 98.7
[2023-03-04] MEDS ORDERED: Furosemide 20 MG TAB PO SCH (09:00)
== END 2023-03-04 01:30 | disposition short-term general hospital (02) | DRG 871 ==
LOC: CSHERS 12:18 → CSHTELE 15:58 → CSHICU 17:01
PROVIDERS: ADMIT Hospitalist; ATTEND Internal Medicine
PROC: 3E03329 Introduction of Other Anti-infective into Peripheral Vein, Percutaneous Approach (ICD-10-PCS; principal; 2023-02-19)
PROC: 0W993ZZ Drainage of Right Pleural Cavity, Percutaneous Approach (ICD-10-PCS; 2023-02-20)
PROC: 0W9G3ZZ Drainage of Peritoneal Cavity, Percutaneous Approach (ICD-10-PCS; 2023-02-21)
PROC: 0W993ZZ Drainage of Right Pleural Cavity, Percutaneous Approach (ICD-10-PCS; 2023-02-24)
PROC: 0W993ZZ Drainage of Right Pleural Cavity, Percutaneous Approach (ICD-10-PCS; 2023-03-01)
DX: A41.01 Sepsis due to Methicillin susceptible Staphylococcus aureus (principal); G93.41 Metabolic encephalopathy; J96.21 Acute and chronic respiratory failure with hypoxia; K76.7 Hepatorenal syndrome; K85.90 Acute pancreatitis without necrosis or infection, unspecified; J90 Pleural effusion, not elsewhere classified; N17.9 Acute kidney failure, unspecified; E22.2 Syndrome of inappropriate secretion of antidiuretic hormone; J94.8 Other specified pleural conditions; Z20.822 Contact with and (suspected) exposure to COVID-19; I25.10 Atherosclerotic heart disease of native coronary artery without angina pectoris; I12.9 Hypertensive chronic kidney disease with stage 1 through stage 4 chronic kidney disease, or unspecified chronic kidney disease; E11.22 Type 2 diabetes mellitus with diabetic chronic kidney disease; K76.82 Hepatic encephalopathy; N18.32 Chronic kidney disease, stage 3b; M10.9 Gout, unspecified; E78.2 Mixed hyperlipidemia; K70.31 Alcoholic cirrhosis of liver with ascites; K21.9 Gastro-esophageal reflux disease without esophagitis; Z88.1 Allergy status to other antibiotic agents; Z79.82 Long term (current) use of aspirin; Z79.84 Long term (current) use of oral hypoglycemic drugs; Z95.5 Presence of coronary angioplasty implant and graft; Z79.899 Other long term (current) drug therapy; Z83.3 Family history of diabetes mellitus; Z80.42 Family history of malignant neoplasm of prostate; Z87.891 Personal history of nicotine dependence
CPT/HCPCS: 36415; 49083; 71045; 71250; 74182; 76705; 80053; 80202; 81001; 82105; 82140; 82150; 82378; 82570; 82805; 82945; 83605; 83615; 83690; 83735; 83880; 83986; 84100; 84156; 84157; 84300; 84478; 84484; 84540; 85025; 85610; 85730; 86140; 86301; 86850; 86900; 86901; 87040; 87070; 87077; 87086; 87102; 87116; 87205; 87206; 88112; 88305; 89051; 93005; 94760; 94762; 96365; 96367; J0692; J1630; J1940; J2001; J2060; J2272; J2405; J2543; J3370; J3430; J3490; P9047; U0002

== ENCOUNTER 2023-04-16 08:02 | Day surgery (SDC) | payer OTHER ==
[2023-04-16 08:43] LABS: #Basophils 0.1 10x3/uL (0.0-0.2); #Eosinphils 0.3 10x3/uL (0.0-0.5); #Monocytes 0.7 10x3/uL (0.0-1.1); %Basophils 1.5 % (0.0-2.0); %Eosinophils 3.7 % (0.0-6.0); %Lymphocytes 24.6 % (18.0-47.0); %Monocytes 10.7 % (0.0-10.0); %Neutrophils 59.2 % (40.0-75.0); Hemoglobin 11.1 g/dL (13.5-17.5); Mean Corpuscular HGB CONC 33.3 g/dL (32.0-36.0); Mean Corpuscular Hemoglobin 32.5 pg (27.0-33.0); Mean Corpuscular Volume 97.4 fl (81.2-95.1); Mean Platelet Volume 9.4 fl (7.4-10.4); Platelet Count 259 10x3/uL (150-450); RBC Distribution Width 15.9 % (11.5-14.5); Red Blood Cell (RBC) Count 3.42 10x6/uL (4.32-5.72); White Blood Cell (WBC) Count 6.8 10x3/uL (3.5-10.5)
[2023-04-16] MEDS ORDERED: Albumin 25% 100 ML ONE (08:48)
[2023-04-16] MEDS ORDERED: Sodium Bicarbonate 2.5 MEQ/5 ML VIAL ONE (08:49)
[2023-04-16] MEDS ORDERED: Lidocaine 1% PF 5 ML VIAL ONE (08:50)
[2023-04-16 08:54] LABS: INR-International Normal Ratio 1.2; Prothrombin Time 12.7 sec (9.5-12.1)
[2023-04-16 09:46] VITALS: BP 106/71; TEMP 97.8
== END 2023-04-16 09:46 | disposition home or self-care (01) ==
LOC: CSHULT 08:02
PROVIDERS: ATTEND Physician Assistant Medical
PROC: 0W9G30Z Drainage of Peritoneal Cavity with Drainage Device, Percutaneous Approach (ICD-10-PCS; principal; 2023-04-16)
DX: R18.8 Other ascites (principal)
CPT/HCPCS: 32555; 71045; 85025; 85610; P9047

== ENCOUNTER 2023-05-14 08:24 | Day surgery (SDC) | payer OTHER ==
[2023-05-14] MEDS ORDERED: Sodium Bicarbonate 2.5 MEQ/5 ML VIAL ONE (08:30)
[2023-05-14] MEDS ORDERED: Lidocaine 1% PF 5 ML VIAL ONE (08:30)
[2023-05-14] MEDS ORDERED: Albumin 25% 100 ML ONE (08:53)
[2023-05-14 09:55] LABS: #Basophils 0.1 10x3/uL (0.0-0.2); #Eosinphils 0.2 10x3/uL (0.0-0.5); #Monocytes 0.6 10x3/uL (0.0-1.1); #Neutrophils 4.5 10x3/uL (1.5-8.4); %Basophils 1.1 % (0.0-2.0); %Eosinophils 2.3 % (0.0-6.0); %Lymphocytes 17.2 % (18.0-47.0); %Monocytes 8.9 % (0.0-10.0); %Neutrophils 70.3 % (40.0-75.0); Hemoglobin 10.9 g/dL (13.5-17.5); Mean Corpuscular HGB CONC 33.5 g/dL (32.0-36.0); Mean Corpuscular Hemoglobin 32.3 pg (27.0-33.0); Mean Corpuscular Volume 96.4 fl (81.2-95.1); Mean Platelet Volume 8.7 fl (7.4-10.4); Platelet Count 171 10x3/uL (150-450); Red Blood Cell (RBC) Count 3.37 10x6/uL (4.32-5.72); White Blood Cell (WBC) Count 6.4 10x3/uL (3.5-10.5)
[2023-05-14 10:00] VITALS: BP 122/61; TEMP 98.3
[2023-05-14 10:03] LABS: INR-International Normal Ratio 1.3; Prothrombin Time 13.6 sec (9.5-12.1)
[2023-05-14 10:07] LABS: ALT (SGPT) 24 U/L (8-55); AST (SGOT) 47 U/L (5-34); Albumin 3.3 g/dL (3.5-5.0); Alkaline Phosphatase 130 U/L (40-110); Anion Gap 11 mmol/L (10-20); BUN (Urea Nitrogen) 10 mg/dL (8.4-25.7); Bilirubin, Total 2.1 mg/dL (0.2-1.2); Calc. Creatinine Clearance 125 mL/min (70-130); Calcium 8.6 mg/dL (7.8-10.44); Carbon Dioxide 25 mmol/L (22-29); Chloride 102 mmol/L (98-107); Estimated GFR 97; Globulin 2.7 g/dL (2.4-3.5); Glucose 134 mg/dL (70-105); Potassium 3.4 mmol/L (3.5-5.1); Sodium 135 mmol/L (136-145)
== END 2023-05-14 09:45 | disposition home or self-care (01) ==
LOC: CSHULT 08:24
PROVIDERS: ATTEND Physician Assistant Medical
DX: J94.8 Other specified pleural conditions (principal); K65.2 Spontaneous bacterial peritonitis; K76.82 Hepatic encephalopathy; K70.30 Alcoholic cirrhosis of liver without ascites; Z88.0 Allergy status to penicillin
CPT/HCPCS: 32555; 71045; 80053; 85025; 85610; P9047

== ENCOUNTER 2023-05-19 09:20 | Day surgery (SDC) | payer OTHER ==
[2023-05-19] MEDS ORDERED: Albumin 25% 100 ML ONE (09:35)
[2023-05-19] MEDS ORDERED: Lidocaine 1% PF 5 ML VIAL ONE (09:36)
[2023-05-19] MEDS ORDERED: Sodium Bicarbonate 2.5 MEQ/5 ML VIAL ONE (09:36)
[2023-05-19 10:54] VITALS: BP 124/76; TEMP 98.8
== END 2023-05-19 10:45 | disposition home or self-care (01) ==
LOC: CSHULT 09:20
PROVIDERS: ATTEND Physician Assistant Medical
PROC: 0W9930Z Drainage of Right Pleural Cavity with Drainage Device, Percutaneous Approach (ICD-10-PCS; principal; 2023-05-19)
DX: J94.8 Other specified pleural conditions (principal); K65.2 Spontaneous bacterial peritonitis; K76.82 Hepatic encephalopathy; K70.30 Alcoholic cirrhosis of liver without ascites
CPT/HCPCS: 32555; 71045; P9047

== ENCOUNTER 2023-06-06 09:48 | Day surgery (SDC) | payer OTHER ==
[2023-06-06] MEDS ORDERED: Sodium Bicarbonate 2.5 MEQ/5 ML VIAL ONE (10:38)
[2023-06-06] MEDS ORDERED: Lidocaine 1% PF 5 ML VIAL ONE (10:38)
[2023-06-06] MEDS ORDERED: Albumin 25% 100 ML ONE (10:38)
[2023-06-06 11:26] LABS: #Basophils 0.1 10x3/uL (0.0-0.2); #Eosinphils 0.2 10x3/uL (0.0-0.5); #Monocytes 0.4 10x3/uL (0.0-1.1); %Lymphocytes 14.9 % (18.0-47.0); %Monocytes 6.4 % (0.0-10.0); %Neutrophils 74.3 % (40.0-75.0); Hemoglobin 11.9 g/dL (13.5-17.5); Mean Corpuscular HGB CONC 33.1 g/dL (32.0-36.0); Mean Corpuscular Hemoglobin 32.2 pg (27.0-33.0); Mean Corpuscular Volume 97.6 fl (81.2-95.1); Mean Platelet Volume 9.9 fl (7.4-10.4); Platelet Count 133 10x3/uL (150-450); RBC Distribution Width 17.1 % (11.5-14.5); Red Blood Cell (RBC) Count 3.69 10x6/uL (4.32-5.72); White Blood Cell (WBC) Count 6.7 10x3/uL (3.5-10.5)
[2023-06-06 11:31] LABS: INR-International Normal Ratio 1.2; Prothrombin Time 13.3 sec (9.5-12.1)
[2023-06-06 11:32] LABS: ALT (SGPT) 15 U/L (8-55); AST (SGOT) 30 U/L (5-34); Albumin 3.1 g/dL (3.5-5.0); Alkaline Phosphatase 116 U/L (40-110); Anion Gap 11 mmol/L (10-20); BUN (Urea Nitrogen) 10 mg/dL (8.4-25.7); Bilirubin, Total 2.6 mg/dL (0.2-1.2); Calc. Creatinine Clearance 0 mL/min (70-130); Calcium 8.6 mg/dL (7.8-10.44); Carbon Dioxide 26 mmol/L (22-29); Chloride 103 mmol/L (98-107); Estimated GFR 92; Globulin 2.8 g/dL (2.4-3.5); Glucose 121 mg/dL (70-105); Potassium 3.8 mmol/L (3.5-5.1); Protein, Total 5.9 g/dL (6.0-8.3); Sodium 136 mmol/L (136-145)
[2023-06-06 11:51] VITALS: BP 110/63; TEMP 98.2
== END 2023-06-06 11:55 | disposition home or self-care (01) ==
LOC: CSHULT 09:48
PROVIDERS: ATTEND Physician Assistant Medical
PROC: 0W993ZZ Drainage of Right Pleural Cavity, Percutaneous Approach (ICD-10-PCS; principal; 2023-06-06)
DX: J90 Pleural effusion, not elsewhere classified (principal); J94.8 Other specified pleural conditions; K65.2 Spontaneous bacterial peritonitis; K76.82 Hepatic encephalopathy; K70.30 Alcoholic cirrhosis of liver without ascites
CPT/HCPCS: 71045; 80053; 85025; 85610; P9047

== ENCOUNTER → 2023-06-30 | Day surgery (SDC) | payer OTHER ==
[~2023-06-30] MED LIST changes: +Albumin 25% 100 ML ONE; -Iopamidol 300 61% 100 ML VIAL FS ONE; +Lidocaine 1% PF 5 ML VIAL ONE; +Sodium Bicarbonate 2.5 MEQ/5 ML VIAL ONE
[2023-06-30 08:39] LABS: #Basophils 0.1 10x3/uL (0.0-0.2); #Eosinphils 0.2 10x3/uL (0.0-0.5); #Monocytes 0.5 10x3/uL (0.0-1.1); #Neutrophils 4.1 10x3/uL (1.5-8.4); %Eosinophils 2.9 % (0.0-6.0); %Monocytes 7.3 % (0.0-10.0); %Neutrophils 66.6 % (40.0-75.0); Hemoglobin 13.2 g/dL (13.5-17.5); Mean Corpuscular HGB CONC 33.4 g/dL (32.0-36.0); Mean Corpuscular Hemoglobin 32.9 pg (27.0-33.0); Mean Corpuscular Volume 98.5 fl (81.2-95.1); Mean Platelet Volume 9.8 fl (7.4-10.4); Platelet Count 158 10x3/uL (150-450); RBC Distribution Width 17.8 % (11.5-14.5); Red Blood Cell (RBC) Count 4.01 10x6/uL (4.32-5.72); White Blood Cell (WBC) Count 6.1 10x3/uL (3.5-10.5)
[2023-06-30 08:51] LABS: INR-International Normal Ratio 1.2; Prothrombin Time 12.6 sec (9.5-12.1)
[2023-06-30 09:37] VITALS: BP 129/70; TEMP 98.3
== END ==
LOC: CSHULT 07:55
PROVIDERS: ATTEND Physician Assistant Medical
PROC: 0W993ZZ Drainage of Right Pleural Cavity, Percutaneous Approach (ICD-10-PCS; principal; 2023-06-30)
DX: J94.8 Other specified pleural conditions (principal); K65.2 Spontaneous bacterial peritonitis; K76.82 Hepatic encephalopathy; K70.30 Alcoholic cirrhosis of liver without ascites; Z88.0 Allergy status to penicillin
CPT/HCPCS: 71045; 85025; 85610; P9047

== ENCOUNTER → 2023-07-18 | Day surgery (SDC) | payer OTHER ==
[~2023-07-18] MED LIST changes: -Albumin 25% 100 ML ONE
== END ==
LOC: CSHULT 09:51
PROVIDERS: ATTEND Physician Assistant Medical
PROC: 0W9930Z Drainage of Right Pleural Cavity with Drainage Device, Percutaneous Approach (ICD-10-PCS; principal; 2023-07-18)
DX: K70.31 Alcoholic cirrhosis of liver with ascites (principal); J94.8 Other specified pleural conditions; K65.2 Spontaneous bacterial peritonitis; K76.82 Hepatic encephalopathy
CPT/HCPCS: 32555

== ENCOUNTER → 2023-07-28 | Day surgery (SDC) | payer OTHER | LOC: CSHULT 08:27 | PROVIDERS: ATTEND Physician Assistant Medical | DX: J94.8 Other specified pleural conditions (principal); K65.2 Spontaneous bacterial peritonitis; K76.82 Hepatic encephalopathy; K70.30 Alcoholic cirrhosis of liver without ascites; Z88.0 Allergy status to penicillin | CPT/HCPCS: 76604 ==

== ENCOUNTER 2023-09-29 07:55 | Day surgery (SDC) | payer BC ==
[2023-09-29 08:35] VITALS: BP 142/67; TEMP 98.7
[2023-09-29] MEDS ORDERED: FLU VACC QS2023-24(6MOS UP)/PF 60 MCG/0.5 ML SYRINGE IM ONE (08:45)
== END 2023-09-29 08:39 | disposition home or self-care (01) ==
LOC: CSHULT 07:55
PROVIDERS: ATTEND Physician Assistant Medical
DX: K70.30 Alcoholic cirrhosis of liver without ascites (principal); K76.9 Liver disease, unspecified; J91.8 Pleural effusion in other conditions classified elsewhere; Z88.0 Allergy status to penicillin; Z95.828 Presence of other vascular implants and grafts
CPT/HCPCS: 76999

== ENCOUNTER 2023-11-17 08:31 | Day surgery (SDC) | payer BC ==
[2023-11-17] MEDS ORDERED: FLU VACC QS2023-24(6MOS UP)/PF 60 MCG/0.5 ML SYRINGE IM ONE (09:30)
== END 2023-11-17 09:12 | disposition home or self-care (01) ==
LOC: CSHULT 08:31
PROVIDERS: ATTEND Physician Assistant Medical
DX: J90 Pleural effusion, not elsewhere classified (principal); K65.2 Spontaneous bacterial peritonitis; Z53.09 Procedure and treatment not carried out because of other contraindication; K76.82 Hepatic encephalopathy; K70.30 Alcoholic cirrhosis of liver without ascites; Z95.828 Presence of other vascular implants and grafts
CPT/HCPCS: 90471; 90686; G0008

== ENCOUNTER 2023-11-30 08:32 | Emergency (ER) | payer BC, OTHER ==
[2023-11-30 09:45] LABS: INR-International Normal Ratio 1.1; PTT 29.3 sec (22.0-33.0); Prothrombin Time 12.3 sec (9.5-12.1)
[2023-11-30 09:52] LABS: ALT (SGPT) 27 U/L (8-55); AST (SGOT) 39 U/L (5-34); Albumin 3.3 g/dL (3.5-5.0); Alkaline Phosphatase 141 U/L (40-110); Anion Gap 15 mmol/L (10-20); BUN (Urea Nitrogen) 10 mg/dL (8.4-25.7); Bilirubin, Total 2.3 mg/dL (0.2-1.2); Calc. Creatinine Clearance 0 mL/min (70-130); Carbon Dioxide 22 mmol/L (22-29); Chloride 101 mmol/L (98-107); Estimated GFR 61; Globulin 3.2 g/dL (2.4-3.5); Glucose 271 mg/dL (70-105); Potassium 4.4 mmol/L (3.5-5.1); Protein, Total 6.5 g/dL (6.0-8.3); Sodium 134 mmol/L (136-145)
[2023-11-30 09:53] LABS: Acetaminophen Less than 10 mcg/mL (10.0-30.0); Alcohol Less than 10.0 mg/dL (Less than 10); Magnesium 1.6 mg/dL (1.6-2.6); Salicylate Less than 8.0 mg/dL (15.0-30.0)
[2023-11-30 10:18] LABS: #Basophils 0.1 10x3/uL (0.0-0.2); #Eosinphils 0.1 10x3/uL (0.0-0.5); #Monocytes 0.4 10x3/uL (0.0-1.1); %Basophils 0.9 % (0.0-2.0); %Eosinophils 2.3 % (0.0-6.0); %Lymphocytes 19.1 % (18.0-47.0); %Monocytes 6.2 % (0.0-10.0); %Neutrophils 71.3 % (40.0-75.0); Hematocrit 36.4 % (38.8-50.0); Hemoglobin 12.9 g/dL (13.5-17.5); Mean Corpuscular HGB CONC 35.4 g/dL (32.0-36.0); Mean Corpuscular Hemoglobin 35.1 pg (27.0-33.0); Mean Corpuscular Volume 98.9 fl (81.2-95.1); Mean Platelet Volume 9.3 fl (7.4-10.4); Platelet Count 142 10x3/uL (150-450); RBC Distribution Width 14.8 % (11.5-14.5); Red Blood Cell (RBC) Count 3.68 10x6/uL (4.32-5.72); White Blood Cell (WBC) Count 5.6 10x3/uL (3.5-10.5)
[2023-11-30] MEDS ORDERED: Morphine 4 MG/ML VIAL ONE (10:39)
[2023-11-30] MEDS ORDERED: Ondansetron PF 4 MG/2 ML Vial ONE (10:40)
== END 2023-11-30 10:54 | disposition short-term general hospital (02) ==
LOC: CSHERS 08:32
DX: G93.89 Other specified disorders of brain (principal); I10 Essential (primary) hypertension; E78.5 Hyperlipidemia, unspecified; I25.10 Atherosclerotic heart disease of native coronary artery without angina pectoris; K21.9 Gastro-esophageal reflux disease without esophagitis; Z87.891 Personal history of nicotine dependence; Z79.899 Other long term (current) drug therapy; Z79.82 Long term (current) use of aspirin
CPT/HCPCS: 36416; 70450; 71045; 80053; 80307; 82140; 83735; 85025; 85610; 85730; 93005; 96374; 96375; J2270; J2405

== ENCOUNTER 2025-06-25 08:41 | Emergency (ER) | payer BC, OTHER ==
[2025-06-25 09:41] LABS: Platelet Count 102 10x3/uL (150-450)
[2025-06-25 09:50] LABS: #Basophils 0.03 10x3/uL (0.0-0.2); #Eosinophils 0.04 10x3/uL (0.0-0.5); #Monocytes 0.65 10x3/uL (0.0-1.1); #Neutrophils 6.76 10x3/uL (1.5-8.4); %Basophils 0.4 % (0.0-2.0); %Eosinophils 0.5 % (0.0-6.0); %Lymphocytes 5.3 % (18.0-47.0); %Monocytes 8.2 % (0.0-10.0); %Neutrophils 85.1 % (40.0-75.0); Hematocrit 42.4 % (38.8-50.0); Hemoglobin 13.8 g/dL (13.5-17.5); INR-International Normal Ratio 1.2; Mean Corpuscular Hemoglobin 28.9 pg (27.0-33.0); Mean Corpuscular Volume 88.9 fL (81.2-95.1); PTT 29.5 sec (22.0-33.0); Prothrombin Time 12.7 sec (9.5-12.1); Red Blood Cell (RBC) Count 4.77 10x6/uL (4.32-5.72); White Blood Cell (WBC) Count 7.94 10x3/uL (3.5-10.5)
[2025-06-25 09:52] LABS: ALT (SGPT) 32 U/L (Less than 45); AST (SGOT) 34 U/L (11-34); Albumin 3.0 g/dL (3.1-4.5); Alkaline Phosphatase 94 U/L (40-110); Anion Gap 14 mmol/L (10-20); BUN (Urea Nitrogen) 23 mg/dL (8.4-25.7); Bilirubin, Total 1.9 mg/dL (0.3-1.2); Calc. Creatinine Clearance 0 mL/min (70-130); Calcium 8.6 mg/dL (7.8-10.44); Carbon Dioxide 20 mmol/L (22-29); Chloride 100 mmol/L (98-107); Globulin 3.2 g/dL (2.4-3.5); Glucose 171 mg/dL (70-105); Lipase 53 U/L (8-78); Magnesium 1.7 mg/dL (1.6-2.6); Potassium 4.3 mmol/L (3.5-5.1); Sodium 130 mmol/L (136-145)
[2025-06-25 09:56] LABS: Troponin I 0.010 ng/mL (< 0.028)
[2025-06-25 10:03] LABS: Platelet Adequacy Comment Appears Decreased; RBC Morphology Within Normal Limits
[2025-06-25] MEDS ORDERED: Ibuprofen 200 MG TAB ONE (10:15)
[2025-06-25 12:55] LABS: Glucose, Urine (Dipstick) >=1000 mg/dL (Negative); Leukocyte 25 (Negative); Protein, Urine (Dipstick) 15 mg/dl (Neg-Trace); Specific Gravity, Urine 1.015 (1.005-1.030)
[2025-06-25 13:09] LABS: Bacteria/HPF 1+ HPF (None Seen); CAUTI Indications for Culture Alt mental st,lethar; RBC/HPF 0-3 HPF (0-3); Urine Culture Reflex No No
== END 2025-06-25 13:53 | disposition home or self-care (01) ==
LOC: CSHERS 08:41
DX: N39.0 Urinary tract infection, site not specified (principal); I10 Essential (primary) hypertension; I25.10 Atherosclerotic heart disease of native coronary artery without angina pectoris; Z86.73 Personal history of transient ischemic attack (TIA), and cerebral infarction without residual deficits; Z87.891 Personal history of nicotine dependence
CPT/HCPCS: 70450; 71045; 80053; 81001; 83690; 83735; 84484; 85025; 85610; 85730; 87426; 93005